=== PATIENT | female | born 1990 | race Hispanic/Latino ===

== ENCOUNTER 2018-03-28 06:47 | Inpatient (IN) | payer MEDICAID, OTHER ==
[2018-03-28 06:47] VITALS: BMI 24.9
--- NOTE | 2018-03-28 07:31 | C.PDOC ---
History Of Present Illness 27-year-old male presents to the ED complaining of alcohol abuse. Patient requests alcohol detox. Notes last alcohol intake was 5 hours ago. No medical complaints at this time. Time Seen by Provider: 03/28/18 07:16 Chief Complaint (Nursing): Substance Abuse History Per: Patient History/Exam Limitations: no limitations Recent travel outside of the [place]: No Past Medical History Reviewed: Historical Data, Nursing Documentation, Vital Signs Vital Signs: Last Vital Signs Temp 98.1 F 03/28/18 06:54 Pulse 79 03/28/18 06:54 Resp 20 03/28/18 06:54 BP 117/74 03/28/18 06:54 Pulse Ox 96 03/28/18 06:54 - Medical History PMH: Asthma Denies: Diabetes, Hepatitis, HIV, HTN, Seizures, Sexually Transmitted Disease - [facility] Procedures PERIPHERAL NERVE SUTURE (01/10/06) TENDON SHEATH SUTURE (01/10/06) Family History: States: Unknown Family Hx - Social History Hx Alcohol Use: Yes Hx Substance Use: Yes (heroin) - Immunization History Hx Tetanus Toxoid Vaccination: No Hx Influenza Vaccination: No Hx Pneumococcal Vaccination: No Review Of Systems Except As Marked, All Systems Reviewed And Found Negative. Constitutional: Positive for: Other Physical Exam - Physical Exam Appears: Well, Non-toxic, No Acute Distress Skin: Normal Color, Warm, Dry Head: Atraumatic, Normacephalic Eye(s): bilateral: Normal Inspection Oral Mucosa: Moist Neck: Normal ROM, Supple Chest: Symmetrical, No Deformity Cardiovascular: Rhythm Regular, No Murmur Respiratory: Normal Breath Sounds, No Rales, No Rhonchi, No Wheezing Gastrointestinal/Abdominal: Normal Exam, Soft, No Tenderness Neurological/Psych: Oriented x3 ED Course And Treatment - Laboratory Results Result Diagrams: 03/28/18 07:59 03/28/18 07:47 O2 Sat by Pulse Oximetry: 96 (RA) Pulse Ox Interpretation: Normal Medical Decision Making Medical Decision Making: Plan: -Blood sent. -HCG Urine -Urinalysis Progress/Update: Patient is medically cleared for detox. Disposition - Disposition Disposition: HOSPITALIZED Disposition Time: 08:30 Condition: STABLE - Clinical Impression Clinical Impression: Alcohol abuse - Scribe Statement The provider has reviewed the documentation as recorded by the Scribe (Yesi Andersen) Provider Attestation: All medical record entries made by the Scribe were at my direction and personally dictated by me. I have reviewed the chart and agree that the record accurately reflects my personal performance of the history, physical exam, medical decision making, and the department course for this patient. I have also personally directed, reviewed, and agree with the discharge instructions and disposition. Decision To Admit - Pt Status Changed To: Hospital Disposition Of: Inpatient - Admit Certification Admit to Inpatient:: After my assessment, the patient will require hospitalization for at least two midnights. This is because of the severity of symptoms shown, intensity of services needed, and/or the medical risk in this patient being treated as an outpatient. - InPatient: Physician Admission Certification: I certify that this patient requires 2 or more midnights of care for the following reason:: detox need more 2 days - . Bed Request Type: Detox Admitting Physician: Anila Tavarez Patient Diagnosis: Alcohol abuse
[2018-03-28 08:04] LABS: HCG,QUALITATIVE URINE NEGATIVE (NEGATIVE)
[2018-03-28 08:06] LABS: SQUAMOUS EPITHIAL 5 /hpf (0-5); URINE BACTERIA RARE (<OCC); URINE BILIRUBIN NEGATIVE (NEGATIVE); URINE CLARITY Hazy (Clear); URINE COLOR Straw (YELLOW); URINE GLUCOSE (UA) NORMAL (Normal); URINE LEUKOCYTE ESTERASE 1+ Leu/uL (Negative); URINE PROTEIN NEGATIVE (NEGATIVE); URINE UROBILINOGEN NORMAL mg/dL (0.2-1.0)
[2018-03-28 08:07] LABS: URINE BLOOD 1+ (NEGATIVE)
[2018-03-28 08:12] LABS: ALBUMIN 4.6 g/dL (3.5-5.0); ALT/SGPT 63 U/L (9-52); AST/SGOT 102 U/L (14-36); BLOOD UREA NITROGEN 6 mg/dL (7-17); CALCIUM 8.9 mg/dl (8.6-10.4); GFR NON-AFRICAN AMERICAN > 60
[2018-03-28 08:14] LABS: BARBITURATES, UR NEGATIVE (NEGATIVE); BENZODIAZEPINES, UR NEGATIVE (NEGATIVE); OPIATES, UR NEGATIVE (NEGATIVE); PHENCYCLIDINE, UR NEGATIVE (NEGATIVE)
[2018-03-28 08:18] LABS: BASO % 0.2 % (0.0-2.0); EOS # 0.1 K/uL (0.0-0.7); EOS % 1.3 % (0.0-4.0); LYMPH # 1.7 K/uL (1.0-4.3); LYMPH % 34.6 % (20.0-40.0); MEAN CORPUSCULAR HEMOGLOBIN 33.6 pg (27.0-31.0); MEAN CORPUSCULAR HGB CONC 34.5 g/dL (33.0-37.0); MONO # 0.2 K/uL (0.0-0.8); NEUT # 2.9 K/uL (1.8-7.0); NEUT % 59.9 % (50.0-75.0); RBC 3.52 Mil/uL (3.80-5.20); RED CELL DISTRIBUTION WIDTH 14.4 % (11.5-14.5); WHITE BLOOD COUNT 4.8 K/uL (4.8-10.8)
[2018-03-28 08:20] LABS: HEMOGLOBIN 11.8 g/dL (11.0-16.0); MEAN CELL VOLUME 97.4 fL (81.0-99.0)
--- NOTE | 2018-03-28 11:39 | PCM.BM ---
<Conchita Small - Last Filed: 03/28/18 11:38> Treatment Plan Problems - Problems identified on initial assessmt potential for alcohol withdrawals Date Initiated: 03/28/18 Assessment reference: NA Status: Active Treatment assets and liabiliti Patient Assests: cooperative, motivated, ADL independent, physically healthy, negotiates basic needs Patient Liabilities: financial problems, poor support system, substance abuse - Milieu Protocol Maintain good personal hygiene: daily Encourage regular showers, daily Remind p atient to perform daily oral care, daily Assist patient to perform ADL's Conduct patient checks and document Observation sheet: Q15 minutes Maintain personal safety: every shift Educate patient to report safety concerns to staff, every shift Monitor environment for contraband/sharps Medication safety: Monitor for expected outcome, potential side effects: every shift, Assess barriers to learning: every shift, Assess readiness for medication education: every shift <Aminata Wallace - Last Filed: 03/29/18 12:27> Family Contact Family involvement: Famliy/SO not involved - Goals for Treatment Patient goals for treatment: Complete detox for alcohol and resume tx. at her methadone clinic. Discharge/Continuing Care - Education Needs Education Needs: Patient Medication, Patient Diagnosis/Disease Process, Patient Coping Skills, Patient Anger Management skills, Patient Placement options, Patient Community resources - Discharge Discharge Criteria: Ability to care for self, No longer exhibiting s/s of withdrawal, Reduction of target symptoms Discharge to:: Home, With Family - Treatment Team Participation Patient/Family/SO Statement: 03/29/18 12:27 "I wanna go back to [facility]--I have take home bottles..." Discussed with Family/SO: No Was Patient/Family/SO present at Treatment Team Meeting: Yes
[2018-03-29] MEDS: Methadone 40 mg Tab PO SCH (09:25)
[2018-03-29] MEDS: Multiple Vitamins Tab PO SCH (09:25)
--- NOTE | 2018-03-29 11:26 | PCM.PSYCH ---
Initial Psychiatric Evaluation - Initial Psychiatric Evaluation Legal Status: Capacity Chief Complaint (in patient's own words): I NEED TO STOP DRINKING I HAVE BEEN DRINKING FOR THREE WEEKS AND I WANT TO STOP BEFORE IT GETS ANY WORSE Patient's Reaction to Hospitalization: I NEED HELP! History of Present Illness and Precipitating Events: PT IS A27 YEAR OLD SINGLE DOMICILED EMPLOYED FEMALE WHO CAME TO [facility] SEEKING DETOX FROM ALCOHOL. SHE HAS TWO CHILDREN WHO ARE CURRENTLY WITH THEIR FATHER/.. PT IS ON MMTP AND RECEIVES A 100MG OF METHADONE A DAY. PTB STARTED WITH PAIN KILLERS FOR HER BACK AND THEN STARTED USING HEROIN. SHE SHOT AND SNORTED HEROIN ABOUT A BUNDLE A DAY. SHE HAS BEEN OM MMTP FOR ABOUT SEVEN MONTHS AND GETS TAKE HOME BOTTLES. PT HAS NO LEGAL OR HISTORY. PT STARTED USING ALCOHOL ABOUT AGE 17. ALCOHOL BECAME A PROBLEM 6 YEARS AGO WHERE SHE DEVELOPED ALCOHOL POSIONING AND GRAND MAL SEIZURES AND WAS IN ICU WITH LFTS ABOVE 700. THREE WEEKS AGO AFTER 6 YEARS SOBER PT BEGAN DRINKING OVER 2 PINTS OF VODKA A DAY PT WANTED HELP BEFORE THINGS GOT WORSE. 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 PT'S FATHER WHEN SHE WAS 12 YEARS OLD. HER MOTHER IS STILL ALIVE. 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 PT HAS THREE OLDER BROTHERPT STATES GRANDFATHER AND BROTHER HAVE SUBSTANCE ABUSE PROBLEMS, PT BHAS BEEN AT [facility] FOR [facility]OX AND [facility]. PT WANTS TO ATTEND AA/NAQ MEETINGS. PT CURRENTLY HAS TREMORS AND ANXIETY WITHDRAWAL SYMPTOMS.OH Current Medications: Active Medications Generic Name Dose Route Start Last Admin Trade Name Freq PRN Reason Stop Dose Admin Clonidine HCl 0.1 mg 03/28/18 21:35 Catapres PO Q4H PRN Symptoms of alcohol withdrawl Folic Acid 1 mg 03/29/18 10:00 03/29/18 09:25 Folic Acid PO 1 mg DAILY STEVEN Administration Gabapentin 300 mg 03/28/18 14:00 03/29/18 09:25 Neurontin PO 300 mg TID STEVEN Administration Hydroxyzine HCl 25 mg 03/28/18 21:36 Atarax PO Q6 PRN Anxiety Lorazepam 1 mg 03/28/18 13:11 03/29/18 08:33 Ativan PO 1 mg Q4 PRN Administration alcohol withdrawal Lorazepam 1 mg 03/29/18 10:00 03/29/18 10:54 Ativan PO 04/03/18 09:59 1 mg Q4H STEVEN Administration Taper Methadone HCl 120 mg 03/29/18 10:00 03/29/18 09:25 Methadose PO 120 mg DAILY STEVEN Administration Multivitamins 1 tab 03/29/18 10:00 03/29/18 09:25 Hexavitamin PO 1 tab DAILY STEVEN Administration Nicotine 1 patch 03/28/18 14:00 03/29/18 09:25 Nicoderm Cq TD 1 patch DAILY STEVEN Administration Ondansetron HCl 4 mg 03/28/18 13:12 03/28/18 13:28 Zofran Tab PO 4 mg Q6 PRN Administration Nausea/Vomiting Thiamine HCl 100 mg 03/29/18 10:00 03/29/18 09:25 Vitamin B1 Tab PO 100 mg DAILY STEVEN Administration Trazodone HCl 50 mg 03/28/18 21:35 03/28/18 22:09 Desyrel PO 50 mg HS PRN Administration Insomnia Past Psychiatric History - Past Psychiatric History Previous Treatment History: None Pertinent Medical Hx (Current Medical&Sleep Prob, Allergies): Allergies Allergy/AdvReac Type Severity Reaction Status Date / Time No Known Allergies Allergy Verified 02/16/18 19:51 Methadone [Methadone HCl] 100 mg PO DAILY 03/28/18 Review of Systems - Review of Systems Systems not reviewed;Unavailable: Intoxicated - Constitutional Constitutional: Weakness, Malaise - EENT Eyes: UNREMARKABLE Ears: UNREMARKABLE Nose/Mouth/Throat: UNREMARKABLE - Breasts Breasts: UNREMARKABLE - Cardiovascular Cardiovascular: UNREMARKABLE - Respiratory Respiratory: UNREMARKABLE - Gastrointestinal Gastrointestinal: UNREMARKABLE - Genitourinary Genitourinary: UNREMARKABLE - Reproductive: Female Reproductive:Female: UNREMARKABLE - Menstruation Menstruation: UNREMARKABLE - Musculoskeletal Musculoskeletal: UNREMARKABLE - Integumentary Integumentary: UNREMARKABLE - Neurological Neurological: Tremor - Psychiatric Psychiatric: Anxiety - Endocrine Endocrine: UNREMARKABLE - Hematologic/Lymphatic Hematologic: UNREMARKABLE Mental Status Examination - Personal Presentation Personal Presentation: Looks stated age - Affect Affect: Blunted - Motor Activity Motor Activity: Calm - Reliability in Providing Information Reliability in Providing Information: Good - Speech Speech: Organized, Relevant - Mood Mood: Anxious - Formal Thought Process Formal Thought Process: No Impairment - Obsessions/Compulsions Obsessions: None Compulsions: None - Cognitive Functions Orientation: Person, Place, Situation, Time Attention/Concentration: Attentive Abstract Thinking: As evidence by abstract perception of proverbs Estimate of Intelligence: Average Judgement: Intact, as evidence by: Good judgement Memory: Recent intact, as evidence by: 3/3 object recall, Remote intact, as evidenced by: Abilit to recall sig. life events - Risk Risk: Seizure, Withdrawal - Strength & Assets Inventory Strength & Assets Inventory: Intelligence, Family support, Education, Employment status, Employment history, Skills DSM 5 DX - DSM 5 DSM 5 Diagnosis: ALCOHOL WITHDRAWAL ATIVAN TAPER ALCOHOL USE DISORDER SEVERE [place] [facility] GROUP MILIEU RECREATIONAL THERAPY SUPPORTIVE PSYCHOTHERAPY NEURONTIN OPIOID USE DISORDER SEVERE ON MEDICATION ASSISTED THERAPY METHADONE - Recommended/Plan of Treatment Treatment Recommendations and Plan of Treatment: SEE ABOVE Projected ELOS: 5 DAYS Prognosis: GOOD WITH TREATMENT Discharge Plan and Discharge Criteria: NO ACUTE ALCHOLIC WITHDRAWAL SYMPTOMS. - Smoking Cessation Smoking Cessation Initiated: No
--- NOTE | 2018-03-29 13:20 | PCM.PYCHPN ---
Psychiatric Progress Note - Psychiatric Progress Note Patient seen today, length of contact: 18 Patient Chief Complaint: I need to stop drinking, as I have been drinking of several weeks Problems Identified/Issues Discussed: The pt is seen, chart reviewed, case discussed with staff. The pt is compliant with medications and states she is feeling better. Pt does state she has facial cheek swelling similar in nature to when she used to drink. Pt denies SOB/ airway obstruction Symptoms are improving but needs more time to stabilize. Pt attends groups and activities. Support given, psycho-education provided. After care discussed. Medication Change: Yes Medical Record Reviewed: Yes Mental Status Examination - Cognitive Function Orientation: Person, Place, Situation, Time Memory: Intact Attention: WNL Concentration: WNL Association: WNL Fund of Knowledge: WNL - Mood Mood: Anxious - Affect Affect: Blunted - Speech Speech: Appropriate - Formal Thought Process Formal Thought Process: No Impairment - Suicidal Ideation Suicidal Ideation: No - Homicidal Ideation Homicidal Ideation: No Goal/Treatment Plan - Goal/Treatment Plan Need for Continued Stay: Discharge may exacerbated symptoms Progress Toward Problem(s) and Goals/Treatment Plan: Taper with Ativan Gabapentin for augmentation if needed Methadone 120 mg PO daily same as outpatient dose Trazodone 50 mg PO HS PRN As needed medications All risks, benefits and alternatives of the meds discussed, and the pt agreed and understood. Attend groups and activities Supportive therapy and psychoeducation FL for abstinence CBT for relapse prevention Encourage MAT Refer to rehab or IOP, and self-help groups Teach healthy lifestyle methods, i.e. diet, exercise, meditation Smoking cessation with FL Nicotine patch daily
[2018-03-29 14:30] VITALS: RESP 18
[2018-03-29] MEDS ORDERED: Vitamins A & D Oint UD Foilpak TOP PRN (20:15)
[2018-03-30] MEDS: Multiple Vitamins Tab PO SCH (09:00)
[2018-03-30] MEDS: Methadone 40 mg Tab PO SCH (09:01)
[2018-03-30 09:42] VITALS: BP 126/84; PULSE 79; TEMP 98.3; O2SAT 98
--- NOTE | 2018-03-30 09:59 | PCM.PYCHDC ---
Mental Status Examination - Mental Status Examination Orientation: Person Discharge Summary - Discharge Note Consultations:: List each consultation separately and include: 1. Reason for request. 2. Findings. 3. Follow-up Summary of Hospital Course include:: 1. Description of specific treatment plan utilized for patients during their course of treatmen. 2. Summarize the time- course for resolution of acute symptoms and/or regressed behaviors. 3. Describe issues identified and worked on during hospitalization. 4. Describe medication utilized. 5. Describe medical problems identified and treated. 6. Reassessment of suicide risk Summary of Hospital Course: She left AMA b/c she didn't want to lose her job and was "feeling better." - Final Diagnosis (DSM 5) Condition upon Discharge: STABLE Disposition: AGAINST MEDICAL ADVICE
[2018-03-30] MEDS ORDERED: Influenza Vaccine 60 MCG/0.5 ML SYR (3 yr & up) IM ONE (14:00)
== END 2018-03-30 10:00 | disposition left against medical advice (07) | DRG 743 ==
LOC: C.ER 06:47 → C.7D 09:51
PROVIDERS: ADMIT Psychiatry & Neurology Psychiatry; ATTEND Psychiatry & Neurology Psychiatry
PROC: HZ2ZZZZ Detoxification Services for Substance Abuse Treatment (ICD-10-PCS; principal; 2018-03-28)
PROC: HZ81ZZZ Medication Management for Substance Abuse Treatment, Methadone Maintenance (ICD-10-PCS; 2018-03-28)
PROC: HZ59ZZZ Individual Psychotherapy for Substance Abuse Treatment, Supportive (ICD-10-PCS; 2018-03-28)
PROC: HZ46ZZZ Group Counseling for Substance Abuse Treatment, Psychoeducation (ICD-10-PCS; 2018-03-28)
DX: F10.230 Alcohol dependence with withdrawal, uncomplicated (principal); F11.20 Opioid dependence, uncomplicated; Y90.7 Blood alcohol level of 200-239 mg/100 ml; F41.9 Anxiety disorder, unspecified; J45.909 Unspecified asthma, uncomplicated; Z86.69 Personal history of other diseases of the nervous system and sense organs

== ENCOUNTER 2018-04-13 10:08 | Inpatient (IN) | payer MEDICAID, OTHER ==
[2018-04-13 10:14] VITALS: BMI 25.0
[2018-04-13 10:50] LABS: HCG,QUALITATIVE URINE NEGATIVE (NEGATIVE); SQUAMOUS EPITHIAL 1 /hpf (0-5); URINE BACTERIA RARE (<OCC); URINE BILIRUBIN NEGATIVE (NEGATIVE); URINE BLOOD 1+ (NEGATIVE); URINE CLARITY Clear (Clear); URINE COLOR Yellow (YELLOW); URINE GLUCOSE (UA) NORMAL (Normal); URINE LEUKOCYTE ESTERASE TRACE Leu/uL (Negative); URINE PROTEIN NEGATIVE (NEGATIVE); URINE UROBILINOGEN NORMAL mg/dL (0.2-1.0)
[2018-04-13 10:55] LABS: BASO % 0.8 % (0.0-2.0); EOS % 0.9 % (0.0-4.0); HEMOGLOBIN 13.4 g/dL (11.0-16.0); LYMPH # 1.4 K/uL (1.0-4.3); MEAN CELL VOLUME 97.4 fL (81.0-99.0); MEAN CORPUSCULAR HEMOGLOBIN 32.5 pg (27.0-31.0); MEAN CORPUSCULAR HGB CONC 33.3 g/dL (33.0-37.0); MEAN PLATELET VOLUME 8.4 fL (7.2-11.7); MONO # 0.2 K/uL (0.0-0.8); MONO % 5.4 % (0.0-10.0); NEUT # 2.8 K/uL (1.8-7.0); NEUT % 61.9 % (50.0-75.0); NRBC % 0.1 % (0.0-2.0); RBC 4.11 Mil/uL (3.80-5.20); RED CELL DISTRIBUTION WIDTH 15.3 % (11.5-14.5); WHITE BLOOD COUNT 4.5 K/uL (4.8-10.8)
[2018-04-13 11:09] LABS: ALB/GLOB RATIO 1.3 (1.0-2.1); ALBUMIN 5.1 g/dL (3.5-5.0); ALT/SGPT 395 U/L (9-52); AST/SGOT 602 U/L (14-36); BLOOD UREA NITROGEN 6 mg/dL (7-17); CALCIUM 9.1 mg/dl (8.6-10.4); GFR NON-AFRICAN AMERICAN > 60
[2018-04-13 11:11] LABS: BARBITURATES, UR NEGATIVE (NEGATIVE); BENZODIAZEPINES, UR NEGATIVE (NEGATIVE); OPIATES, UR NEGATIVE (NEGATIVE); PHENCYCLIDINE, UR NEGATIVE (NEGATIVE)
--- NOTE | 2018-04-13 11:26 | C.PDOC ---
History Of Present Illness 27 year old female presents to the emergency department with reports of feeling suicidal and depressed over the last few days. Patient states that she is not suicidal at this time, and has no suicidal plan. Patient states that she is a chronic drinker, drinking half a gallon of vodka per day. She reports that she is withdrawing from alcohol at this time, and her last drink was several hours ago. She denies any other complaints at this time. Time Seen by Provider: 04/13/18 10:26 Chief Complaint (Nursing): Psychiatric Evaluation History Per: Patient History/Exam Limitations: no limitations Onset/Duration Of Symptoms: Days Current Symptoms Are (Timing): Still Present Suicide/Self Injury Attempted (Context): None Modifying Factor(s): Alcohol Associated Symptoms: Depression, Suicidal Thoughts. denies: Suicidal Plan Past Medical History Reviewed: Historical Data, Nursing Documentation, Vital Signs Vital Signs: Last Vital Signs Temp 98.2 F 04/13/18 10:30 Pulse 74 04/13/18 10:30 Resp 18 04/13/18 10:30 BP 151/89 H 04/13/18 10:30 Pulse Ox 95 04/13/18 10:30 - Medical History PMH: Anxiety, Asthma, Depression Denies: Diabetes, Hepatitis, HIV, HTN (denies), Seizures, Sexually Transmitted Disease Surgical History: No Surg Hx - [facility] Procedures DETOXIFICATION SERVICES FOR SUBSTANCE ABUSE TREATMENT (03/28/18) GROUP SHIRT MARKER FOR SUBSTANCE ABUSE TREATMENT, PSYCHOEDUCATION (03/28/18) INDIV PSYCHOTHERAPY FOR SUBSTANCE ABUSE TREATMENT, SUPPORT (03/28/18) MEDS MGMT FOR SUBSTANCE ABUSE TREATMENT, METHADONE MAINT (03/28/18) PERIPHERAL NERVE SUTURE (01/10/06) TENDON SHEATH SUTURE (01/10/06) Family History: States: No Known Family Hx - Social History Hx Alcohol Use: Yes Hx Substance Use: Yes - Immunization History Hx Tetanus Toxoid Vaccination: No Hx Influenza Vaccination: No Hx Pneumococcal Vaccination: No Review Of Systems Except As Marked, All Systems Reviewed And Found Negative. Constitutional: Negative for: Fever, Chills Gastrointestinal: Negative for: Nausea, Vomiting, Abdominal Pain, Diarrhea Psych: Positive for: Depression, Suicidal ideation Physical Exam - Physical Exam Appears: Non-toxic, No Acute Distress, Other (flat affect) Skin: Normal Color, Warm, Dry, No Rash Head: Atraumatic, Normacephalic Eye(s): bilateral: Normal Inspection, PERRL, EOMI Nose: Normal Oral Mucosa: Moist Throat: No Erythema, No Exudate Neck: Normal, Supple Chest: Symmetrical, No Tenderness Cardiovascular: Rhythm Regular, No Friction Rub, No Murmur Respiratory: Normal Breath Sounds, No Rales, No Rhonchi, No Wheezing Gastrointestinal/Abdominal: Soft, No Tenderness, No Guarding, No Rebound Back: Normal Inspection, No CVA Tenderness Extremity: Normal ROM, No Swelling Neurological/Psych: Oriented x3, Normal Speech, Normal Motor Gait: Steady ED Course And Treatment - Laboratory Results Result Diagrams: 04/13/18 10:50 04/13/18 10:50 O2 Sat by Pulse Oximetry: 95 (RA) Pulse Ox Interpretation: Normal Progress Note: Plan: Chemistry. Hematology. HCG Qualitative Urine. Urinalysis Medical Decision Making Medical Decision Making: The patient is medically cleared for psych/detox admission. Disposition - Disposition Disposition: HOSPITALIZED Disposition Time: 14:00 Condition: STABLE Forms: [facility] (Tajik) - POA Present On Arrival: None - Clinical Impression Clinical Impression: Major depressive disorder, recurrent episode, Alcohol dependence, Anxiety disorder, unspecified - PA / IMMUNOCHEMIST / Resident Statement MD/DO has reviewed & agrees with the documentation as recorded. - Scribe Statement The provider has reviewed the documentation as recorded by the Scribe (Woodrow Siddiqui) All medical record entries made by the Scribe were at my direction and personally dictated by me. I have reviewed the chart and agree that the record accurately reflects my personal performance of the history, physical exam, medical decision making, and the department course for this patient. I have also personally directed, reviewed, and agree with the discharge instructions and disposition.
[2018-04-13] MEDS: Multiple Vitamins Tab PO SCH (16:34)
--- NOTE | 2018-04-13 18:02 | PCM.BM ---
<Bradley Partida - Last Filed: 04/13/18 17:57> Treatment Plan Problems - Problems identified on initial assessmt Depression Date Initiated: 04/13/18 Time Initiated: 17:57 Assessment reference: NA Status: Active Alcohol abuse Date Initiated: 04/13/18 Time Initiated: 17:58 Assessment reference: NA Status: Active Treatment assets and liabiliti Patient Assests: cooperative, motivated, self-reliant, ADL independent, physically healthy, negotiates basic needs Patient Liabilities: live alone (Homeless), financial problems (Unemployed), substance abuse, medical problems (Hypertension) - Milieu Protocol Maintain good personal hygiene: daily Encourage regular showers, every shift Remind patient to perform daily oral care, every shift Assist patient to perform ADL's Conduct patient checks and document Observation sheet: Q15 minutes Maintain personal safety: every shift Educate patient to report safety concerns to staff, every shift Monitor environment for contraband/sharps Medication safety: Monitor for expected outcome, potential side effects: every shift, Assess barriers to learning: every shift, Assess readiness for medication education: every shift <Griselda Rizo - Last Filed: 04/14/18 14:08> Family Contact Family involvement: Famliy/SO not involved - Goals for Treatment Patient goals for treatment: "I need to go to rehab." Discharge/Continuing Care - Education Needs Education Needs: Patient Medication, Patient Coping Skills, Patient Placement options, Patient Community resources - Discharge Discharge Criteria: Tolerates medication w/o severe side effects, No longer exhibiting s/s of withdrawal, Reduction of target symptoms Discharge to:: Substance Abuse Rehab - Treatment Team Participation Discussed with Family/SO: No Was Patient/Family/SO present at Treatment Team Meeting: Yes <Yara Haynes - Last Filed: 04/16/18 10:51> - Diagnosis (1) Major depressive disorder, recurrent episode Status: Acute Interventions: 04/16/18 10:51 * Assess/adjust medications daily and /or as needed * See patient on an individual basis 7x/week to assess symptoms of depression * Monitor for side effects & effectiveness of medications * (2) Alcohol dependence Status: Acute Interventions: 04/16/18 10:51 * Assess 7x/week regarding severity of withdrawal * Educate regarding risks, benefits, side effects and alternatives of medications * Use Motivational Interviewing for abstinence * Use CBT for relapse prevention * Medication management for withdrawal symptoms * Encourage medication assisted treatment *
--- NOTE | 2018-04-13 19:44 | CP.PCM.CON ---
<Monserrat Guerrero - Last Filed: 04/13/18 20:58> History of Present Illness - History of Present Illness History of Present Illness: Medicine consult for patient who is a 27 year old female with pmhx of alcohol abuse and former IV drug abuse admitted for alcohol detox and associated depression; requested consult for transaminitis. Patient was recently admitted here in mid March for alcohol detox, but left AMA. Since then, patient reports she lost her job and custody of her children, and has been drinking excessively and taking Tylenol for body aches. Patient reports she consumes >1L vodka daily, and takes at least 5 extra strength tylenol daily. Patient reports scleral icterus for the past few days, denies pruritis. Patient reports some epigastric and RUQ pain, in addition to left lower back pain. Patient reports a history of IV heroin abuse, and currently on methadone for the past 8 months. Denies nausea, increased girth to abdomen, loose or foul smelling stools, post prandial abdominal pain. Pmhx: alcohol abuse, IV drug abuse Pshx: R wrist sx Allergies: denies Meds: sundar SocHx: Vodka >1L/day, 1 ppd x 5 yrs, no other drug use FamHx: HTN, ovarian ca Review of Systems - Constitutional Constitutional: Headache - EENT Eyes: Other (yellowing of eyes) - Cardiovascular Cardiovascular: absent: Chest Pain, Palpitations - Respiratory Respiratory: absent: Dyspnea - Gastrointestinal Gastrointestinal: Abdominal Pain, Heartburn. absent: Loose Stools, Nausea - Musculoskeletal Musculoskeletal: Myalgias Past Patient History - Infectious Disease Hx of Infectious Diseases: None - Past Social History Smoking Status: Heavy Smoker > 10 Cigarettes Daily - CARDIAC Hx Hypertension: No (denies) - PULMONARY Hx Asthma: Yes - NEUROLOGICAL Hx Seizures: No - HEMATOLOGICAL/ONCOLOGICAL Hx Human Immunodeficiency Virus (HIV): No - MUSCULOSKELETAL/RHEUMATOLOGICAL Hx Falls: No - GENITOURINARY/GYNECOLOGICAL Hx Sexually Transmitted Disorders: No - PSYCHIATRIC Hx Substance Use: Yes - SURGICAL HISTORY Hx Surgeries: Yes Hx Musculoskeletal Surgery: Yes (right wrist) - ANESTHESIA Hx Anesthesia: No Meds Allergies/Adverse Reactions: Allergies Allergy/AdvReac Type Severity Reaction Status Date / Time No Known Allergies Allergy Verified 04/13/18 10:13 - Medications Medications: Current Medications Clonidine HCl (Catapres) 0.1 mg PO Q4H PRN PRN Reason: Symptoms of alcohol withdrawl Folic Acid (Folic Acid) 1 mg PO DAILY [facility] Last Admin: 04/13/18 16:34 Dose: 1 mg Gabapentin (Neurontin) 400 mg PO TID [facility] Last Admin: 04/13/18 17:38 Dose: 400 mg Lorazepam (Ativan) 2 mg PO Q4 [facility]; Taper Stop: 04/18/18 15:44 Last Admin: 04/13/18 16:34 Dose: 2 mg Lorazepam (Ativan) 1 mg PO Q4H PRN PRN Reason: Symptoms of alcohol withdrawl Multivitamins (Hexavitamin) 1 tab PO DAILY [facility] Last Admin: 04/13/18 16:34 Dose: 1 tab Pneumococcal Polyvalent Vaccine (Pneumovax 23 Vaccine) 0.5 ml IM .ONCE ONE Stop: 04/15/18 10:01 Thiamine HCl (Vitamin B1 Tab) 100 mg PO DAILY [facility] Last Admin: 04/13/18 16:34 Dose: 100 mg Trazodone HCl (Desyrel) 50 mg PO HS PRN PRN Reason: Insomnia Physical Exam - Constitutional Appears: Non-toxic, No Acute Distress - Head Exam Head Exam: ATRAUMATIC, NORMAL INSPECTION, NORMOCEPHALIC - Eye Exam Eye Exam: EOMI, Normal appearance. absent: Nystagmus, Scleral icterus Pupil Exam: PERRL - ENT Exam ENT Exam: Mucous Membranes Moist, Normal Exam - Neck Exam Neck exam: Positive for: Normal Inspection - Respiratory Exam Respiratory Exam: Clear to Auscultation Bilateral, NORMAL BREATHING PATTERN - Cardiovascular Exam Cardiovascular Exam: REGULAR RHYTHM, +S1, +S2 - GI/Abdominal Exam GI & Abdominal Exam: Organomegaly (liver palpable 3cm below costal margin), Soft , Tenderness (epigastric, RUQ). absent: Distended - Extremities Exam Extremities exam: Positive for: normal inspection. Negative for: calf tenderness, pedal edema - Neurological Exam Neurological exam: Alert, Oriented x3 - Psychiatric Exam Psychiatric exam: Anxious, Normal Affect, Normal Mood - Skin Skin Exam: Dry, Intact, Normal Color (no jaundice), Warm Results - Vital Signs Recent Vital Signs: Last Vital Signs Temp 98.6 F 04/13/18 15:45 Pulse 80 04/13/18 15:45 Resp 18 04/13/18 15:45 BP 154/90 H 04/13/18 15:45 Pulse Ox 95 04/13/18 14:40 - Labs Result Diagrams: 04/13/18 10:50 04/13/18 10:50 Labs: Laboratory Results - last 24 hr 04/13/18 04/13/18 04/13/18 10:44 10:44 10:50 WBC 4.5 L RBC 4.11 Hgb 13.4 Hct 40.1 MCV 97.4 MCH 32.5 H MCHC 33.3 RDW 15.3 H Plt Count 113 L D MPV 8.4 Neut % (Auto) 61.9 Lymph % (Auto) 31.0 [place] % (Auto) 5.4 Eos % (Auto) 0.9 Baso % (Auto) 0.8 Neut # (Auto) 2.8 Lymph # (Auto) 1.4 [place] # (Auto) 0.2 Eos # (Auto) 0.0 Baso # (Auto) 0.0 Differential Comment Sodium Potassium Chloride Carbon Dioxide Anion Gap BUN Creatinine Est GFR ( Amer) Est GFR (Non-Af Amer) Random Glucose Calcium Magnesium Total Bilirubin AST ALT Alkaline Phosphatase Total Protein Albumin Globulin Albumin/Globulin Ratio Urine Color Yellow Urine Clarity Clear Urine pH 7.0 Ur Specific [place] 1.004 Urine Protein Negative Urine Glucose (UA) Normal Urine Ketones Negative Urine Blood 1+ H Urine Nitrate Negative Urine Bilirubin Negative Urine Urobilinogen Normal Ur Leukocyte Esterase Trace Urine WBC (Auto) 1 Urine RBC (Auto) 1 Ur Squamous Epith Cells 1 Urine Bacteria Rare Urine HCG, Qual Negative Urine Opiates Screen Negative Urine Methadone Screen Positive H Ur Barbiturates Screen Negative Ur Phencyclidine Scrn Negative Ur Amphetamines Screen Negative U Benzodiazepines Scrn Negative U Oth Cocaine Metabols Positive H U Cannabinoids Screen Negative Alcohol, Quantitative 04/13/18 10:50 WBC RBC Hgb Hct MCV MCH MCHC RDW Plt Count MPV Neut % (Auto) Lymph % (Auto) [place] % (Auto) Eos % (Auto) Baso % (Auto) Neut # (Auto) Lymph # (Auto) [place] # (Auto) Eos # (Auto) Baso # (Auto) Differential Comment Sodium 139 Potassium 3.6 Chloride 95 L Carbon Dioxide 31 H Anion Gap 17 BUN 6 L Creatinine 0.6 L Est GFR ( Amer) > 60 Est GFR (Non-Af Amer) > 60 Random Glucose 102 Calcium 9.1 Magnesium 1.8 Total Bilirubin 0.6 AST 602 H D ALT 395 H D Alkaline Phosphatase 171 H D Total Protein 9.0 H Albumin 5.1 H Globulin 3.9 Albumin/Globulin Ratio 1.3 Urine Color Urine Clarity Urine pH Ur Specific [place] Urine Protein Urine Glucose (UA) Urine Ketones Urine Blood Urine Nitrate Urine Bilirubin Urine Urobilinogen Ur Leukocyte Esterase Urine WBC (Auto) Urine RBC (Auto) Ur Squamous Epith Cells Urine Bacteria Urine HCG, Qual Urine Opiates Screen Urine Methadone Screen Ur Barbiturates Screen Ur Phencyclidine Scrn Ur Amphetamines Screen U Benzodiazepines Scrn U Oth Cocaine Metabols U Cannabinoids Screen Alcohol, Quantitative 183 H Assessment & Plan - Assessment and Plan (Free Text) Assessment: Patient is a 27 year old female admitted for alcohol detox and depression; medicine consult for evaluation and treatment of transaminitis. Plan: Transaminitis, acute; likely 2/2 to excessive alcohol and Tylenol consumption, continue to trend and r/o infectious etiology -acute elevation from prior admission 03/28/18 -discontinue all hepatotoxic medications -f/u hepatitis panel -f/u abdominal US -f/u INR, am labs -educated patient regarding Tylenol and its hepatotoxic effects -alcohol withdrawal/depression per primary Discussed with Dr. Lombardi -Monserrat Guerrero, PGY-1 <Osvaldo Lombardi - Last Filed: 04/14/18 06:44> Meds - Medications Medications: Current Medications Clonidine HCl (Catapres) 0.1 mg PO Q4H PRN PRN Reason: Symptoms of alcohol withdrawl Folic Acid (Folic Acid) 1 mg PO DAILY [facility] Last Admin: 04/13/18 16:34 Dose: 1 mg Gabapentin (Neurontin) 400 mg PO TID [facility] Last Admin: 04/13/18 17:38 Dose: 400 mg Influenza Virus Vaccine (Fluzone Quad [id number]) 60 mcg IM .ONCE ONE Stop: 04/15/18 10:01 Lorazepam (Ativan) 2 mg PO Q4 [facility]; Taper Stop: 04/18/18 15:44 Last Admin: 04/14/18 04:35 Dose: 2 mg Lorazepam (Ativan) 1 mg PO Q4H PRN PRN Reason: Symptoms of alcohol withdrawl Multivitamins (Hexavitamin) 1 tab PO DAILY [facility] Last Admin: 01/01/19 16:34 Dose: 1 tab Pneumococcal Polyvalent Vaccine (Pneumovax 23 Vaccine) 0.5 ml IM .ONCE ONE Stop: 04/15/18 10:01 Thiamine HCl (Vitamin B1 Tab) 100 mg PO DAILY [facility] Last Admin: 04/13/18 16:34 Dose: 100 mg Trazodone HCl (Desyrel) 50 mg PO HS PRN PRN Reason: Insomnia Results - Vital Signs Recent Vital Signs: Last Vital Signs Temp 98.5 F 04/14/18 05:53 Pulse 73 04/14/18 05:53 Resp 18 04/14/18 05:53 BP 130/79 04/14/18 05:53 Pulse Ox 95 04/13/18 14:40 - Labs Result Diagrams: 04/13/18 10:50 04/13/18 10:50 Labs: Laboratory Results - last 24 hr 04/13/18 04/13/18 04/13/18 10:44 10:44 10:50 WBC 4.5 L RBC 4.11 Hgb 13.4 Hct 40.1 MCV 97.4 MCH 32.5 H MCHC 33.3 RDW 15.3 H Plt Count 113 L D MPV 8.4 Neut % (Auto) 61.9 Lymph % (Auto) 31.0 [place] % (Auto) 5.4 Eos % (Auto) 0.9 Baso % (Auto) 0.8 Neut # (Auto) 2.8 Lymph # (Auto) 1.4 [place] # (Auto) 0.2 Eos # (Auto) 0.0 Baso # (Auto) 0.0 Differential Comment Sodium Potassium Chloride Carbon Dioxide Anion Gap BUN Creatinine Est GFR ( Amer) Est GFR (Non-Af Amer) Random Glucose Calcium Magnesium Total Bilirubin AST ALT Alkaline Phosphatase Total Protein Albumin Globulin Albumin/Globulin Ratio Urine Color Yellow Urine Clarity Clear Urine pH 7.0 Ur Specific [place] 1.004 Urine Protein Negative Urine Glucose (UA) Normal Urine Ketones Negative Urine Blood 1+ H Urine Nitrate Negative Urine Bilirubin Negative Urine Urobilinogen Normal Ur Leukocyte Esterase Trace Urine WBC (Auto) 1 Urine RBC (Auto) 1 Ur Squamous Epith Cells 1 Urine Bacteria Rare Urine HCG, Qual Negative Urine Opiates Screen Negative Urine Methadone Screen Positive H Ur Barbiturates Screen Negative Ur Phencyclidine Scrn Negative Ur Amphetamines Screen Negative U Benzodiazepines Scrn Negative U Oth Cocaine Metabols Positive H U Cannabinoids Screen Negative Alcohol, Quantitative 04/13/18 10:50 WBC RBC Hgb Hct MCV MCH MCHC RDW Plt Count MPV Neut % (Auto) Lymph % (Auto) [place] % (Auto) Eos % (Auto) Baso % (Auto) Neut # (Auto) Lymph # (Auto) [place] # (Auto) Eos # (Auto) Baso # (Auto) Differential Comment Sodium 139 Potassium 3.6 Chloride 95 L Carbon Dioxide 31 H Anion Gap 17 BUN 6 L Creatinine 0.6 L Est GFR ( Amer) > 60 Est GFR (Non-Af Amer) > 60 Random Glucose 102 Calcium 9.1 Magnesium 1.8 Total Bilirubin 0.6 AST 602 H D ALT 395 H D Alkaline Phosphatase 171 H D Total Protein 9.0 H Albumin 5.1 H Globulin 3.9 Albumin/Globulin Ratio 1.3 Urine Color Urine Clarity Urine pH Ur Specific [place] Urine Protein Urine Glucose (UA) Urine Ketones Urine Blood Urine Nitrate Urine Bilirubin Urine Urobilinogen Ur Leukocyte Esterase Urine WBC (Auto) Urine RBC (Auto) Ur Squamous Epith Cells Urine Bacteria Urine HCG, Qual Urine Opiates Screen Urine Methadone Screen Ur Barbiturates Screen Ur Phencyclidine Scrn Ur Amphetamines Screen U Benzodiazepines Scrn U Oth Cocaine Metabols U Cannabinoids Screen Alcohol, Quantitative 183 H Assessment & Plan - Date & Time Date: 04/14/18 (I have seen and examined the patient. I agree with the findings and plan of care as documented by Dr. Guerrero. Hospitalist service consulted due to elevated LFTs. History of alcohol abuse. Patient admitted to taking Tylenol as outpatient. Recommend discontinuation of alcohol consumption and Tylenol use as well as any hepatotoxic medications. Ativan for CIWA protocol recommended. Avoid Librium. Check hepatitis panel. Monitor for acute changes.) Time: 06:42 Attending/Attestation - Attestation I have personally seen and examined this patient.: Yes I have fully participated in the care of the patient.: Yes I have reviewed all pertinent clinical information: Yes
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
[2018-04-14 09:08] LABS: BASO % 0.3 % (0.0-2.0); EOS # 0.1 K/uL (0.0-0.7); LYMPH # 0.9 K/uL (1.0-4.3); LYMPH % 30.8 % (20.0-40.0); MONO # 0.1 K/uL (0.0-0.8); NEUT # 1.8 K/uL (1.8-7.0); WHITE BLOOD COUNT 2.9 K/uL (4.8-10.8)
[2018-04-14 09:11] LABS: INR 1.1; PROTHROMBIN TIME 11.5 SECONDS (9.7-12.2)
[2018-04-14 09:14] LABS: EOS % 2.6 % (0.0-4.0); MEAN CELL VOLUME 97.7 fL (81.0-99.0); MEAN CORPUSCULAR HGB CONC 33.8 g/dL (33.0-37.0); MEAN PLATELET VOLUME 9.7 fL (7.2-11.7); MONO % 4.8 % (0.0-10.0); NEUT % 61.5 % (50.0-75.0); RBC 3.96 Mil/uL (3.80-5.20); RED CELL DISTRIBUTION WIDTH 14.8 % (11.5-14.5)
--- NOTE | 2018-04-14 09:20 | US ---
Date of service: 04/14/2018 HISTORY: Elevated LFT COMPARISON: None. TECHNIQUE: Sonographic evaluation of the right upper quadrant of the abdomen. FINDINGS: LIVER: Measures 21.4 cm in length. Mildly increased echogenicity of the liver parenchyma. Normal directional blood flow is appreciated the portal vein. No mass. No intrahepatic bile duct dilatation. GALLBLADDER: Extensive cholelithiasis identified occupying a large volume of the gallbladder with tremendous posterior acoustic shadowing. However, there is no pericholecystic fluid collection or mural thickening appreciable as imaged. Further, there is no sonographic Crzu sign reported. COMMON BILE DUCT: Measures 1.7 mm. No stones. No dilatation. PANCREAS: Unremarkable as visualized. No mass. No ductal dilatation. RIGHT KIDNEY: Measures 11.4 cm in length. Normal echogenicity. No calculus, mass, or hydronephrosis. AORTA: No aneurysmal dilatation. IVC: Unremarkable. OTHER FINDINGS: None . IMPRESSION: Mild diffuse fatty infiltration liver is appreciated without focal mass or biliary tree dilatation. Extensive cholelithiasis identified distending the gallbladder without sonographic sign of cholecystitis. Normal biliary tree caliber grossly evident. Unremarkable pancreas and right kidney.
[2018-04-14 09:21] LABS: ALB/GLOB RATIO 1.3 (1.0-2.1); ALBUMIN 4.6 g/dL (3.5-5.0); ALT/SGPT 329 U/L (9-52); AST/SGOT 534 U/L (14-36); BLOOD UREA NITROGEN 9 mg/dL (7-17); CALCIUM 9.4 mg/dl (8.6-10.4); GFR NON-AFRICAN AMERICAN > 60
[2018-04-14] MEDS: Multiple Vitamins Tab PO SCH (09:28)
[2018-04-14 09:47] LABS: HEPATITIS B SURFACE AG Negative (NEGATIVE)
[2018-04-14 09:52] LABS: HEPATITIS A IGM NEGATIVE (NEGATIVE); HEPATITIS B CORE AB NEGATIVE (NEGATIVE)
[2018-04-14 10:06] LABS: HEPATITIS C ANTIBODY NEGATIVE (NEGATIVE)
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
[2018-04-15 06:57] LABS: BASO % 0.6 % (0.0-2.0); EOS # 0.1 K/uL (0.0-0.7); LYMPH # 1.1 K/uL (1.0-4.3); LYMPH % 33.2 % (20.0-40.0); MEAN CELL VOLUME 98.3 fL (81.0-99.0); MEAN CORPUSCULAR HGB CONC 33.5 g/dL (33.0-37.0); MEAN PLATELET VOLUME 9.6 fL (7.2-11.7); MONO # 0.1 K/uL (0.0-0.8); NEUT # 1.9 K/uL (1.8-7.0); NEUT % 59.2 % (50.0-75.0); NRBC % 0.1 % (0.0-2.0); RBC 3.96 Mil/uL (3.80-5.20); RED CELL DISTRIBUTION WIDTH 15.3 % (11.5-14.5); WHITE BLOOD COUNT 3.2 K/uL (4.8-10.8)
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
[2018-04-15 07:36] LABS: ALB/GLOB RATIO 1.3 (1.0-2.1); ALBUMIN 4.4 g/dL (3.5-5.0); BLOOD UREA NITROGEN 10 mg/dL (7-17); CALCIUM 9.7 mg/dl (8.6-10.4); GFR NON-AFRICAN AMERICAN > 60
[2018-04-15 07:37] LABS: ALT/SGPT 333 U/L (9-52); AST/SGOT 544 U/L (14-36)
[2018-04-15] MEDS: Multiple Vitamins Tab PO SCH (09:39)
[2018-04-15] MEDS ORDERED: Influenza Vaccine 60 MCG/0.5 ML SYR (3 yr & up) IM ONE (10:00)
[2018-04-15] MEDS ORDERED: Pneumococcal 23-Valent Vaccine IM ONE (10:00)
[2018-04-15] MEDS: Methadone 40 mg Tab PO SCH (13:07)
[2018-04-15] MEDS ORDERED: cefTRIAXone (Rocephin) 250 mg Inj IM ONE (15:28)
[2018-04-15] MEDS ORDERED: cefTRIAXone 250 MG in Lidocaine Hydrochloride 1% 0.9 ML IM ONE (16:15)
--- NOTE | 2018-04-15 23:15 | PCM.PYCHPN ---
Psychiatric Progress Note - Psychiatric Progress Note Patient seen today, length of contact: 15 min Patient Chief Complaint: I was feeling depressed.' Problems Identified/Issues Discussed: Patient was seen and evaluated, chart reviewed and discussed with staff. Patient still reports depressed mood and at times feelings of hopelessness and helplessness. She still reports withdrawal symptoms from drinking including shakes, nausea, anxiety, sweating. She remained isolated and withdrawn and confined to home. She is taking medication but denies any side effects. Symptoms are improving gradually and she needs to stay longer for further stabilization. Supportive therapy was given Medication Change: Yes Medical Record Reviewed: Yes Mental Status Examination - Cognitive Function Orientation: Person, Place, Situation, Time Memory: Intact Attention: WNL Concentration: Poor Association: WNL Fund of Knowledge: Poor - Mood Mood: Depressed, Anxious - Affect Affect: Constricted, Depressed - Speech Speech: Soft - Formal Thought Process Formal Thought Process: No Impairment - Suicidal Ideation Suicidal Ideation: No - Homicidal Ideation Homicidal Ideation: No Goal/Treatment Plan - Goal/Treatment Plan Need for Continued Stay: Severe depression anxiety, Severe functional impairment Progress Toward Problem(s) and Goals/Treatment Plan: Major depressive disorder recurrent severe without psychotic features Alcohol use disorder severe Alcohol withdrawal Cocaine use disorder moderate Opioid use disorder severe on maintenance therapy CBT Psychoeducation Supportive therapy and group therapy Ativan taper Methadone 120 mg p.o. daily Hydroxyzine 25 mg p.o. every 6 hours as needed Trazodone 50 mg p.o. nightly Zoloft 50 mg p.o. daily Gabapentin 400 mg p.o. 3 times daily - Smoking Cessation Smoking Cessation Initiated: No
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
[2018-04-16 08:06] LABS: EOS # 0.2 K/uL (0.0-0.7); EOS % 4.5 % (0.0-4.0); HEMOGLOBIN 12.8 g/dL (11.0-16.0); LYMPH # 1.3 K/uL (1.0-4.3); LYMPH % 37.2 % (20.0-40.0); MEAN CELL VOLUME 98.7 fL (81.0-99.0); MEAN CORPUSCULAR HEMOGLOBIN 33.4 pg (27.0-31.0); MEAN CORPUSCULAR HGB CONC 33.8 g/dL (33.0-37.0); MEAN PLATELET VOLUME 9.6 fL (7.2-11.7); MONO # 0.1 K/uL (0.0-0.8); NEUT # 1.9 K/uL (1.8-7.0); NEUT % 53.3 % (50.0-75.0); RBC 3.84 Mil/uL (3.80-5.20); RED CELL DISTRIBUTION WIDTH 15.3 % (11.5-14.5); WHITE BLOOD COUNT 3.5 K/uL (4.8-10.8)
[2018-04-16 08:23] LABS: ALB/GLOB RATIO 1.4 (1.0-2.1); ALBUMIN 4.4 g/dL (3.5-5.0); ALT/SGPT 368 U/L (9-52); AST/SGOT 613 U/L (14-36); BLOOD UREA NITROGEN 12 mg/dL (7-17); CALCIUM 9.5 mg/dl (8.6-10.4); GFR NON-AFRICAN AMERICAN > 60
[2018-04-16] MEDS: Methadone 40 mg Tab PO SCH (10:26)
[2018-04-16] MEDS: Multiple Vitamins Tab PO SCH (10:26)
--- NOTE | 2018-04-16 10:52 | PCM.PYCHPN ---
Psychiatric Progress Note - Psychiatric Progress Note Patient seen today, length of contact: 15 min Patient Chief Complaint: I was feeling depressed and suicidal.' Problems Identified/Issues Discussed: Patient was seen and evaluated, chart reviewed and discussed with staff. Patient still reports depressed mood and at times feelings of hopelessness and helplessness. She still reports withdrawal symptoms from drinking including shakes, nausea, anxiety, sweating. She remained isolated and withdrawn and confined to home. She is taking medication but denies any side effects. Symptoms are improving gradually and she needs to stay longer for further stabilization. Supportive therapy was given Medication Change: Yes Medical Record Reviewed: Yes Mental Status Examination - Cognitive Function Orientation: Person, Place, Situation, Time Memory: Intact Attention: WNL Concentration: Poor Association: WNL Fund of Knowledge: Poor - Mood Mood: Depressed, Anxious - Affect Affect: Constricted, Depressed - Speech Speech: Soft - Formal Thought Process Formal Thought Process: No Impairment - Suicidal Ideation Suicidal Ideation: No - Homicidal Ideation Homicidal Ideation: No Goal/Treatment Plan - Goal/Treatment Plan Need for Continued Stay: Severe depression anxiety, Severe functional impairment Progress Toward Problem(s) and Goals/Treatment Plan: Major depressive disorder recurrent severe without psychotic features Alcohol use disorder severe Alcohol withdrawal Cocaine use disorder moderate Opioid use disorder severe on maintenance therapy CBT Psychoeducation Supportive therapy and group therapy Ativan taper Methadone 120 mg p.o. daily Hydroxyzine 25 mg p.o. every 6 hours as needed Trazodone 50 mg p.o. nightly Zoloft 100 mg p.o. daily Gabapentin 400 mg p.o. 3 times daily
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
[2018-04-16] MEDS: Vitamins A & D Oint UD Foilpak TOP PRN (17:51)
[2018-04-17] MEDS: Methadone 40 mg Tab PO SCH (09:41)
[2018-04-17] MEDS: Multiple Vitamins Tab PO SCH (09:42)
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
[2018-04-17 19:28] LABS: BASO % 0.5 % (0.0-2.0); EOS # 0.2 K/uL (0.0-0.7); HEMOGLOBIN 13.2 g/dL (11.0-16.0); LYMPH # 1.7 K/uL (1.0-4.3); LYMPH % 38.3 % (20.0-40.0); MEAN CELL VOLUME 99.8 fL (81.0-99.0); MEAN CORPUSCULAR HEMOGLOBIN 32.9 pg (27.0-31.0); MEAN CORPUSCULAR HGB CONC 32.9 g/dL (33.0-37.0); MEAN PLATELET VOLUME 10.1 fL (7.2-11.7); MONO # 0.4 K/uL (0.0-0.8); MONO % 9.8 % (0.0-10.0); NEUT # 2.1 K/uL (1.8-7.0); NEUT % 47.4 % (50.0-75.0); RED CELL DISTRIBUTION WIDTH 15.5 % (11.5-14.5); WHITE BLOOD COUNT 4.4 K/uL (4.8-10.8)
[2018-04-17 19:49] LABS: ALB/GLOB RATIO 1.4 (1.0-2.1); ALBUMIN 4.7 g/dL (3.5-5.0); ALT/SGPT 396 U/L (9-52); AST/SGOT 504 U/L (14-36); BLOOD UREA NITROGEN 13 mg/dL (7-17); CALCIUM 9.7 mg/dl (8.6-10.4); GFR NON-AFRICAN AMERICAN > 60
--- NOTE | 2018-04-17 22:55 | PCM.PYCHPN ---
Psychiatric Progress Note - Psychiatric Progress Note Patient seen today, length of contact: 15 min Patient Chief Complaint: I am feeling little drowsy after increasing the dose of Zoloft. Problems Identified/Issues Discussed: Patient seen, chart reviewed, case discussed with the staff. Issues related to illness and treatment were discussed with the patient and staff. Reported compliant with treatment with no adverse effect. Calm and cooperative. Reported feeling better. Also reported feeling more drowsy after increasing the dose of Zoloft from 50- 100 mg. Education provided about the medications. Patient understood and agreed with current medication and dosage. Awake, alert and oriented x 3. Mood reported as okay. Affect appropriate. Memory intact. Aftercare discussed with the patient. Denied any delusions, auditory or visual hallucinations, suicidal ideations or homicidal ideations at the time of evaluation. Medical Problems: Hypertension Diagnostic Results: Reviewed DSM 5 Symptoms Update: Improving with treatment for Medication Change: No Medical Record Reviewed: Yes Consults ordered or reviewed: Reviewed Mental Status Examination - Cognitive Function Orientation: Person, Place, Situation, Time Memory: Intact Attention: WNL Concentration: WNL Association: WN Fund of Knowledge: [facility] Decription of patient's judgement and insights: Fair - Mood Mood: Depressed - Affect Affect: Depressed - Speech Speech: Soft - Formal Thought Process Formal Thought Process: No Impairment Psychotic Thoughts and Behaviors: None - Suicidal Ideation Suicidal Ideation: No - Homicidal Ideation Homicidal Ideation: No Goal/Treatment Plan - Goal/Treatment Plan Need for Continued Stay: Remain at risks for inpatient hospitalization, Discharge may exacerbated symptoms, Severe functional impairment Progress Toward Problem(s) and Goals/Treatment Plan: Patient education. Supportive therapy. Continue treatment as before. Estimated Date of D/C: 04/19/18 - Smoking Cessation Smoking Cessation Initiated: No
[2018-04-18 06:42] VITALS: TEMP 97.8
[2018-04-18] MEDS: Methadone 40 mg Tab PO SCH (09:15)
[2018-04-18] MEDS: Multiple Vitamins Tab PO SCH (09:15)
[2018-04-18 09:27] LABS: BASO % 0.6 % (0.0-2.0); EOS # 0.1 K/uL (0.0-0.7); EOS % 4.1 % (0.0-4.0); HEMOGLOBIN 13.5 g/dL (11.0-16.0); LYMPH # 1.5 K/uL (1.0-4.3); LYMPH % 42.5 % (20.0-40.0); MEAN CORPUSCULAR HEMOGLOBIN 33.5 pg (27.0-31.0); MEAN CORPUSCULAR HGB CONC 33.5 g/dL (33.0-37.0); MEAN PLATELET VOLUME 9.9 fL (7.2-11.7); MONO # 0.5 K/uL (0.0-0.8); MONO % 13.7 % (0.0-10.0); NEUT # 1.4 K/uL (1.8-7.0); NEUT % 39.1 % (50.0-75.0); NRBC % 0.1 % (0.0-2.0); RBC 4.02 Mil/uL (3.80-5.20); RED CELL DISTRIBUTION WIDTH 15.5 % (11.5-14.5); WHITE BLOOD COUNT 3.5 K/uL (4.8-10.8)
[2018-04-18 09:48] LABS: ALB/GLOB RATIO 1.3 (1.0-2.1); ALBUMIN 4.2 g/dL (3.5-5.0); ALT/SGPT 374 U/L (9-52); AST/SGOT 454 U/L (14-36); BLOOD UREA NITROGEN 14 mg/dL (7-17); CALCIUM 9.4 mg/dl (8.6-10.4); GFR NON-AFRICAN AMERICAN > 60
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
[2018-04-18] MEDS ORDERED: Alum-Mag Hydrox-Simethicone Susp (30 mL) PO PRN (15:29)
[2018-04-18] MEDS: Vitamins A & D Oint UD Foilpak TOP PRN (21:18)
[2018-04-19 06:43] VITALS: BP 117/66; PULSE 51; RESP 20; O2SAT 97
[2018-04-19 06:56] LABS: BASO % 0.7 % (0.0-2.0); EOS # 0.1 K/uL (0.0-0.7); EOS % 2.5 % (0.0-4.0); HEMOGLOBIN 12.9 g/dL (11.0-16.0); LYMPH # 1.5 K/uL (1.0-4.3); LYMPH % 31.5 % (20.0-40.0); MEAN CORPUSCULAR HEMOGLOBIN 33.4 pg (27.0-31.0); MEAN CORPUSCULAR HGB CONC 33.8 g/dL (33.0-37.0); MEAN PLATELET VOLUME 10.2 fL (7.2-11.7); MONO # 0.7 K/uL (0.0-0.8); MONO % 15.2 % (0.0-10.0); NEUT # 2.3 K/uL (1.8-7.0); NEUT % 50.1 % (50.0-75.0); NRBC % 0.1 % (0.0-2.0); RBC 3.85 Mil/uL (3.80-5.20); RED CELL DISTRIBUTION WIDTH 15.1 % (11.5-14.5); WHITE BLOOD COUNT 4.6 K/uL (4.8-10.8)
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
[2018-04-19 07:36] LABS: ALB/GLOB RATIO 1.3 (1.0-2.1); ALBUMIN 4.4 g/dL (3.5-5.0); ALT/SGPT 344 U/L (9-52); AST/SGOT 295 U/L (14-36); BLOOD UREA NITROGEN 14 mg/dL (7-17); CALCIUM 9.7 mg/dl (8.6-10.4); GFR NON-AFRICAN AMERICAN > 60
[2018-04-19] MEDS: Methadone 40 mg Tab PO SCH (09:35)
[2018-04-19] MEDS: Multiple Vitamins Tab PO SCH (09:37)
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
== END 2018-04-19 11:00 | disposition home or self-care (01) | DRG 751 ==
LOC: C.ER 10:08 → C.5E 13:59
PROC: GZ3ZZZZ Medication Management (ICD-10-PCS; principal; 2018-04-13)
PROC: GZ56ZZZ Individual Psychotherapy, Supportive (ICD-10-PCS; 2018-04-13)
PROC: GZHZZZZ Group Psychotherapy (ICD-10-PCS; 2018-04-13)
PROC: HZ81ZZZ Medication Management for Substance Abuse Treatment, Methadone Maintenance (ICD-10-PCS; 2018-04-13)
PROC: HZ2ZZZZ Detoxification Services for Substance Abuse Treatment (ICD-10-PCS; 2018-04-13)
DX: F33.2 Major depressive disorder, recurrent severe without psychotic features (principal); F10.231 Alcohol dependence with withdrawal delirium; R45.851 Suicidal ideations; F11.20 Opioid dependence, uncomplicated; F14.20 Cocaine dependence, uncomplicated; D69.59 Other secondary thrombocytopenia; T76.21XA Adult sexual abuse, suspected, initial encounter; R74.0 Nonspecific elevation of levels of transaminase and lactic acid dehydrogenase [LDH]; F17.210 Nicotine dependence, cigarettes, uncomplicated; Y90.6 Blood alcohol level of 120-199 mg/100 ml; K70.0 Alcoholic fatty liver; I10 Essential (primary) hypertension; F41.9 Anxiety disorder, unspecified; J45.909 Unspecified asthma, uncomplicated; Z59.0 Homelessness; Z56.0 Unemployment, unspecified

== ENCOUNTER 2018-04-21 19:45 | Inpatient (IN) | payer MEDICAID ==
[2018-04-21 19:46] VITALS: BMI 25.0
--- NOTE | 2018-04-21 20:39 | C.PDOC ---
History Of Present Illness 27 year old female presents to the ER with heavy ETOH intake reporting suicidal ideation for the past few days. Patient has Hx of ETOH abuse. Denies other complaints at this time. Chief Complaint (Nursing): Psychiatric Evaluation History Per: Patient History/Exam Limitations: no limitations Onset/Duration Of Symptoms: Days Current Symptoms Are (Timing): Still Present Modifying Factor(s): Alcohol Associated Symptoms: Suicidal Thoughts Recent travel outside of the [place]: No Past Medical History Reviewed: Historical Data, Nursing Documentation, Vital Signs Vital Signs: Last Vital Signs Temp 97.4 F L 04/21/18 20:08 Pulse 98 H 04/21/18 20:08 Resp 16 04/21/18 20:08 BP 120/76 04/21/18 20:08 Pulse Ox 97 04/21/18 20:08 - Medical History PMH: Anxiety, Asthma, Depression Denies: Diabetes, Hepatitis, HIV, HTN (denies), Seizures, Sexually Transmitted Disease - [facility] Procedures DETOXIFICATION SERVICES FOR SUBSTANCE ABUSE TREATMENT (04/13/18) GROUP CHALK CUTTER FOR SUBSTANCE ABUSE TREATMENT, PSYCHOEDUCATION (03/28/18) GROUP PSYCHOTHERAPY (04/13/18) INDIV PSYCHOTHERAPY FOR SUBSTANCE ABUSE TREATMENT, SUPPORT (03/28/18) INDIVIDUAL PSYCHOTHERAPY, SUPPORTIVE (04/13/18) MEDICATION MANAGEMENT (04/13/18) MEDS MGMT FOR SUBSTANCE ABUSE TREATMENT, METHADONE MAINT (04/13/18) PERIPHERAL NERVE SUTURE (01/10/06) TENDON SHEATH SUTURE (01/10/06) Family History: States: Unknown Family Hx - Social History Hx Alcohol Use: Yes Hx Substance Use: Yes - Immunization History Hx Tetanus Toxoid Vaccination: No Hx Influenza Vaccination: No Hx Pneumococcal Vaccination: No Review Of Systems Constitutional: Negative for: Fever, Chills Cardiovascular: Negative for: Chest Pain, Palpitations Respiratory: Negative for: Cough, Shortness of Breath Gastrointestinal: Negative for: Nausea, Vomiting Psych: Positive for: Suicidal ideation Physical Exam - Physical Exam Appears: Non-toxic, Other (Mild AOB, alert, conscious) Skin: Normal Color, Warm, Dry Head: Atraumatic, Normacephalic Eye(s): bilateral: Normal Inspection Oral Mucosa: Moist Chest: Symmetrical, No Tenderness Cardiovascular: Rhythm Regular Respiratory: Normal Breath Sounds, No Rales, No Rhonchi, No Wheezing Gastrointestinal/Abdominal: Soft, No Tenderness Back: No CVA Tenderness Neurological/Psych: Oriented x3, Normal Speech ED Course And Treatment - Laboratory Results Result Diagrams: 04/21/18 20:54 04/21/18 20:54 O2 Sat by Pulse Oximetry: 97 (room air) Pulse Ox Interpretation: Normal Progress Note: Blood work and urinalysis ordered. Crisis notified. Disposition Discussed With : Emma Barron Doctor Will See Patient In The: Hospital Counseled Patient/Family Regarding: Diagnosis - Disposition Disposition: HOSPITALIZED Disposition Time: 02:43 Condition: STABLE Forms: [facility] (Haitian) - POA Present On Arrival: None - Clinical Impression Clinical Impression: Major depression, Alcohol use disorder - Scribe Statement The provider has reviewed the documentation as recorded by the Scribyenni Peraza All medical record entries made by the Scribe were at my direction and personally dictated by me. I have reviewed the chart and agree that the record accurately reflects my personal performance of the history, physical exam, medical decision making, and the department course for this patient. I have also personally directed, reviewed, and agree with the discharge instructions and disposition.
--- NOTE | 2018-04-21 20:39 | C.PDOC ---
Chief Complaint (Nursing): Psychiatric Evaluation Past Medical History Vital Signs: Last Vital Signs Temp 97.4 F L 04/21/18 20:08 Pulse 98 H 04/21/18 20:08 Resp 16 04/21/18 20:08 BP 120/76 04/21/18 20:08 Pulse Ox 97 04/21/18 20:08 - Medical History PMH: Anxiety, Asthma, Depression Denies: Diabetes, Hepatitis, HIV, HTN (denies), Seizures, Sexually Transmitted Disease - [facility] Procedures DETOXIFICATION SERVICES FOR SUBSTANCE ABUSE TREATMENT (04/13/18) GROUP KILN MECHANIC FOR SUBSTANCE ABUSE TREATMENT, PSYCHOEDUCATION (03/28/18) GROUP PSYCHOTHERAPY (04/13/18) INDIV PSYCHOTHERAPY FOR SUBSTANCE ABUSE TREATMENT, SUPPORT (03/28/18) INDIVIDUAL PSYCHOTHERAPY, SUPPORTIVE (04/13/18) MEDICATION MANAGEMENT (04/13/18) MEDS MGMT FOR SUBSTANCE ABUSE TREATMENT, METHADONE MAINT (04/13/18) PERIPHERAL NERVE SUTURE (01/10/06) TENDON SHEATH SUTURE (01/10/06) - Social History Hx Alcohol Use: Yes Hx Substance Use: Yes - Immunization History Hx Tetanus Toxoid Vaccination: No Hx Influenza Vaccination: No Hx Pneumococcal Vaccination: No ED Course And Treatment O2 Sat by Pulse Oximetry: 97 Disposition - Disposition
[2018-04-21 20:58] LABS: BASO % 0.6 % (0.0-2.0); EOS % 0.1 % (0.0-4.0); HEMOGLOBIN 12.9 g/dL (11.0-16.0); LYMPH # 1.8 K/uL (1.0-4.3); LYMPH % 33.2 % (20.0-40.0); MEAN CELL VOLUME 98.7 fL (81.0-99.0); MEAN CORPUSCULAR HEMOGLOBIN 32.8 pg (27.0-31.0); MEAN CORPUSCULAR HGB CONC 33.2 g/dL (33.0-37.0); MEAN PLATELET VOLUME 9.3 fL (7.2-11.7); MONO # 0.6 K/uL (0.0-0.8); MONO % 11.9 % (0.0-10.0); NEUT # 2.9 K/uL (1.8-7.0); NEUT % 54.2 % (50.0-75.0); RBC 3.95 Mil/uL (3.80-5.20); RED CELL DISTRIBUTION WIDTH 15.5 % (11.5-14.5); WHITE BLOOD COUNT 5.4 K/uL (4.8-10.8)
[2018-04-21 21:00] LABS: HCG,QUALITATIVE URINE NEGATIVE (NEGATIVE)
[2018-04-21 21:04] LABS: SQUAMOUS EPITHIAL 5 /hpf (0-5); URINE BACTERIA RARE (<OCC); URINE BILIRUBIN NEGATIVE (NEGATIVE); URINE BLOOD NEGATIVE (NEGATIVE); URINE CLARITY Clear (Clear); URINE COLOR Straw (YELLOW); URINE GLUCOSE (UA) NORMAL (Normal); URINE LEUKOCYTE ESTERASE NEG Leu/uL (Negative); URINE PROTEIN NEGATIVE (NEGATIVE); URINE UROBILINOGEN NORMAL mg/dL (0.2-1.0)
[2018-04-21 21:10] LABS: BARBITURATES, UR NEGATIVE (NEGATIVE); OPIATES, UR NEGATIVE (NEGATIVE); PHENCYCLIDINE, UR NEGATIVE (NEGATIVE)
[2018-04-21 21:14] LABS: BENZODIAZEPINES, UR POSITIVE (NEGATIVE)
[2018-04-21 21:16] LABS: ALB/GLOB RATIO 1.4 (1.0-2.1); ALBUMIN 4.8 g/dL (3.5-5.0); ALT/SGPT 272 U/L (9-52); AST/SGOT 162 U/L (14-36); BLOOD UREA NITROGEN 7 mg/dL (7-17); CALCIUM 9.2 mg/dl (8.6-10.4); GFR NON-AFRICAN AMERICAN > 60
[2018-04-22] MEDS ORDERED: Potassium Chloride 20 mEq ER Tab PO ONE (03:29)
--- NOTE | 2018-04-22 04:23 | PCM.BM ---
<Crow Lynn - Last Filed: 04/22/18 04:21> Treatment Plan Problems - Problems identified on initial assessmt Altered Health Maintenance Date Initiated: 04/22/18 Time Initiated: 03:15 Assessment reference: NA Status: Active Medication Nonadherence Date Initiated: 04/22/18 Time Initiated: 03:15 Assessment reference: NA Status: Active Treatment assets and liabiliti Patient Assests: adapts well, cooperative, motivated, self-reliant, ADL independent, physically healthy, negotiates basic needs Patient Liabilities: substance abuse - Milieu Protocol Maintain good personal hygiene: daily Encourage regular showers, daily Remind patient to perform daily oral care, daily Assist patient to perform ADL's Conduct patient checks and document Observation sheet: Q15 minutes Maintain personal safety: every shift Educate patient to report safety concerns to staff, every shift Monitor environment for contraband/sharps Medication safety: Monitor for expected outcome, potential side effects: every shift, Assess barriers to learning: every shift, Assess readiness for medication education: every shift <Yara Haynes - Last Filed: 04/23/18 11:00> - Diagnosis (1) Major depression Status: Acute Interventions: 04/23/18 11:00 * Assess/adjust medications daily and /or as needed * See patient on an individual basis 7x/week to assess symptoms of depression * Monitor for side effects & effectiveness of medications * (2) Alcohol use disorder Status: Acute Interventions: 04/23/18 11:01 * Assess 7x/week regarding severity of withdrawal * Educate regarding risks, benefits, side effects and alternatives of medications * Use Motivational Interviewing for abstinence * Use CBT for relapse prevention * Medication management for withdrawal symptoms * Encourage medication assisted treatment * <Griselda Rizo - Last Filed: 04/23/18 12:07> Family Contact Family involvement: Family/SO is involved Family contact: Patient declines to allow family contact at present - Goals for Treatment Patient goals for treatment: "I want to go to rehab." Discharge/Continuing Care - Education Needs Education Needs: Patient Medication, Patient Coping Skills, Patient Placement options, Patient Community resources - Discharge Discharge Criteria: Tolerates medication w/o severe side effects, No longer exhibiting s/s of withdrawal, Reduction of target symptoms Discharge to:: Substance Abuse Rehab - Treatment Team Participation Discussed with Family/SO: No Was Patient/Family/SO present at Treatment Team Meeting: Yes
--- NOTE | 2018-04-22 10:16 | PCM.PSYCH ---
Initial Psychiatric Evaluation - Initial Psychiatric Evaluation Type of Admission: Voluntary Legal Status: Capacity Chief Complaint (in patient's own words): I relapsed on drinking and became increasingly depressed.' History of Present Illness and Precipitating Events: Patient is a 27 year old female, who is single, unemployed, and homeless presents to the ED with depressed mood, alcohol abuse and suicidal ideation with a plan to jump in front of bus. Pasteuriser Operator is familiar with this patient. Patient was just discharged from the [facility] [address] 2 days ago. Patient reports that she went to the methadone clinic for follow-up. However she reports that she relapsed on drinking and started abusing 2-3 pints of liquor daily. Yesterday she consumed more than 2 pints of liquor became increasingly depressed mood, developed suicidal ideation and came to the hospital to get help. Pt has been diagnosed with depression and anxiety in 2012, but is currently is not following up with any psychiatrist. Pt states she came to the hospital to get help because of an incident with her brother. Her brother had an automobile accident, which prompted her to realize that her life is important and that she wants to improve and live it. Pt states that although she is homeless now, she has spoken with her mother and that she is welcomed back to her parent's home. Pt states following her detox/treatment here, she will follow up at [facility], then return home. Pt states she has increasing visual disturbances, anxiety, lack of sleep, lack of appetite, chills, nausea, vomiting, and tremors, which are all related to her alcohol withdrawal. Pt scores a 10 on the CIWA scale. She reports depressed mood, feelings of hopelessness and helplessness, poor sleep and poor appetite. However she denies any auditory or visual hallucinations or any paranoia. PMH: denies Meds: Gabapentin, Trazodone Allergies: denies Current Medications: Active Medications Generic Name Dose Route Start Last Admin Trade Name Freq PRN Reason Stop Dose Admin Lorazepam 1 mg 04/22/18 03:26 04/22/18 10:00 Ativan PO 1 mg Q6H PRN Administration Symptoms of alcohol withdrawl Past Psychiatric History - Past Psychiatric History Previous Treatment History: Inpatient Pertinent Medical Hx (Current Medical&Sleep Prob, Allergies): Allergies Allergy/AdvReac Type Severity Reaction Status Date / Time No Known Allergies Allergy Verified 04/21/18 20:13 Methadone [Methadone HCl] 100 mg PO DAILY 03/28/18 Gabapentin [Neurontin] 400 mg PO TID #60 cap 04/19/18 Sertraline [Zoloft] 100 mg PO DAILY #30 tab 04/19/18 traZODone [Desyrel] 100 mg PO HS PRN #30 tab 04/19/18 Review of Systems - Review of Systems All systems: reviewed and no additional remarkable complaints except - Psychiatric Psychiatric: Anxiety, Irritability, Suicidal Ideation Mental Status Examination - Personal Presentation Personal Presentation: Looks stated age - Affect Affect: Constricted, Depressed - Motor Activity Motor Activity: Calm - Reliability in Providing Information Reliability in Providing Information: Good - Speech Speech: Organized - Mood Mood: Depressed, Anxious - Formal Thought Process Formal Thought Process: No Impairment - Obsessions/Compulsions Obsessions: No Compulsions: No - Cognitive Functions Orientation: Person, Place, Situation, Time Sensorium: Alert Attention/Concentration: Attentive Abstract Thinking: [place] Estimate of Intelligence: Below average Judgement: Imparied, as evidence by: Poor judgement, Imparied, as evidence by: Lack of insight into illness - Risk Risk: Suicidal, Diminished functioning - Limitations Limitations: Living alone DSM 5 DX - DSM 5 DSM 5 Diagnosis: Major depressive disorder recurrent severe without psychotic features Alcohol use disorder severe Alcohol withdrawal Opioid use disorder Severe on maintenance therapy - Recommended/Plan of Treatment Treatment Recommendations and Plan of Treatment: Major depressive disorder recurrent severe without psychotic features Alcohol use disorder severe Alcohol withdrawal Opioid use disorder Severe on maintenance therapy CBT Psychoeducation Supportive therapy group therapy milieu therapy Neurontin 400 mg p.o. 3 times daily Zoloft 100 p.o. daily Trazodone 50 mg p.o. nightly Ativan taper Methadone taper
[2018-04-22] MEDS ORDERED: Methadone 40 mg Tab PO ONE (11:15)
[2018-04-22] MEDS: Vitamins A & D Oint UD Foilpak TOP PRN (13:28)
[2018-04-22] MEDS ORDERED: Aluminum Hydroxide/Magnesium Hydroxide Susp (30 mL) PO PRN (14:41)
--- NOTE | 2018-04-23 11:02 | PCM.PYCHPN ---
Psychiatric Progress Note - Psychiatric Progress Note Patient seen today, length of contact: 15 min Patient Chief Complaint: I want to get off from methadone.' Problems Identified/Issues Discussed: Patient was seen and evaluated, chart reviewed discussed with staff. Patient reports depressed mood and at times feelings of hopelessness and helplessness. She still reports withdrawal symptoms from drinking including shakes, tremors, anxiety, headaches. She reports that she wants to get off of methadone and wants to taper off during her stay. She reports improvement in his sleep and appetite. She denies any auditory hallucinations or any paranoia. She is taking medication but denies any side effects. Supportive therapy was given. Medication Change: Yes Medical Record Reviewed: Yes Mental Status Examination - Cognitive Function Orientation: Person, Place, Situation, Time Memory: Intact Attention: WNL Concentration: Poor Association: WNL Fund of Knowledge: Poor - Mood Mood: Depressed, Anxious - Affect Affect: Constricted, Depressed - Formal Thought Process Formal Thought Process: No Impairment - Suicidal Ideation Suicidal Ideation: No - Homicidal Ideation Homicidal Ideation: No Goal/Treatment Plan - Goal/Treatment Plan Need for Continued Stay: Severe depression anxiety Progress Toward Problem(s) and Goals/Treatment Plan: Major depressive disorder recurrent severe without psychotic features Alcohol use disorder severe Alcohol withdrawal Opioid use disorder Severe on maintenance therapy CBT Psychoeducation Supportive therapy group therapy milieu therapy Neurontin 400 mg p.o. 3 times daily Zoloft 100 p.o. daily Trazodone 50 mg p.o. nightly Ativan taper Methadone taper from Methadone 80 mg - Smoking Cessation Smoking Cessation Initiated: No
[2018-04-23] MEDS: Vitamins A & D Oint UD Foilpak TOP PRN (17:04)
[2018-04-24] MEDS: Methadone 40 mg Tab PO SCH (10:27)
[2018-04-24] MEDS: Vitamins A & D Oint UD Foilpak TOP PRN (10:28)
[2018-04-25] MEDS: Methadone 40 mg Tab PO SCH (09:47)
--- NOTE | 2018-04-25 23:20 | PCM.PYCHPN ---
Psychiatric Progress Note - Psychiatric Progress Note Patient seen today, length of contact: 15 min Patient Chief Complaint: "OK I guess" Problems Identified/Issues Discussed: The pt is seen, chart reviewed, case is discussed with staff. The pt is compliant with medications and reports no side-effects. Symptoms are improving but needs more time to stabilize and to avoid relapse. Pt attends groups and activities. Support given, psycho-education provided. After care discussed. Medication Change: Yes Medical Record Reviewed: Yes Mental Status Examination - Cognitive Function Orientation: Person, Place, Situation, Time Memory: Intact Attention: WNL Concentration: Poor Association: WNL Fund of Knowledge: Poor - Mood Mood: Depressed, Anxious - Affect Affect: Constricted, Depressed - Formal Thought Process Formal Thought Process: No Impairment - Suicidal Ideation Suicidal Ideation: No - Homicidal Ideation Homicidal Ideation: No Goal/Treatment Plan - Goal/Treatment Plan Need for Continued Stay: Severe depression anxiety, Severe functional impairment Progress Toward Problem(s) and Goals/Treatment Plan: Continue medications Support and psychoeducation daily Attend groups and activities daily Individual therapy After care planning by YOGESH and the team
[2018-04-26 06:11] VITALS: O2SAT 59
[2018-04-26] MEDS: Methadone 40 mg Tab PO SCH (09:08)
--- NOTE | 2018-04-26 23:59 | PCM.PYCHPN ---
Psychiatric Progress Note - Psychiatric Progress Note Patient seen today, length of contact: 15 min Patient Chief Complaint: I would like to be maintained on methadone 80 mg' Problems Identified/Issues Discussed: Patient was seen and evaluated, chart reviewed discussed with staff. Patient reports some improvement in her depressed mood and reports some improvement in the feelings of hopelessness and helplessness. She still reports withdrawal symptoms from drinking including anxiety, and headaches. She reports that she wants to be maintained on methadone 80 mg. She also reports that she would like to go to a methadone program so that she can be tapered off gradually. She reports improvement in his sleep and appetite. She denies any auditory hallucinations or any paranoia. She is taking medication but denies any side effects. Supportive therapy was given. Medication Change: Yes Medical Record Reviewed: Yes Mental Status Examination - Cognitive Function Orientation: Person, Place, Situation, Time Memory: Intact Attention: WNL Concentration: Poor Association: WNL Fund of Knowledge: Poor - Mood Mood: Depressed, Anxious - Affect Affect: Constricted, Depressed - Formal Thought Process Formal Thought Process: No Impairment - Suicidal Ideation Suicidal Ideation: No - Homicidal Ideation Homicidal Ideation: No Goal/Treatment Plan - Goal/Treatment Plan Need for Continued Stay: Severe depression anxiety, Severe functional impairment Progress Toward Problem(s) and Goals/Treatment Plan: Major depressive disorder recurrent severe without psychotic features Alcohol use disorder severe Alcohol withdrawal Opioid use disorder Severe on maintenance therapy CBT Psychoeducation Supportive therapy group therapy milieu therapy Neurontin 400 mg p.o. 3 times daily Zoloft 100 p.o. daily Trazodone 100 mg p.o. nightly Ativan taper Methadone 80 mg daily - Smoking Cessation Smoking Cessation Initiated: No
[2018-04-27 06:38] VITALS: RESP 20
[2018-04-27] MEDS: Methadone 40 mg Tab PO SCH (09:40)
[2018-04-27] MEDS: Vitamins A & D Oint UD Foilpak TOP PRN (20:24)
[2018-04-28 06:14] VITALS: BP 104/67; PULSE 54; TEMP 98.2
[2018-04-28] MEDS: Methadone 40 mg Tab PO SCH (09:21)
--- NOTE | 2018-04-28 10:10 | PCM.PYCHDC ---
Mental Status Examination - Mental Status Examination Orientation: Person, Place, Situation, Time Memory: Intact Mood: Neutral Affect: Constricted Speech: Soft Attention: WNL Concentration: WNL Association: WNL Fund of Knowledge: WNL Formal Thought Process: No Impairment Description of patient's judgement and insight: good, fair Psychotic Thoughts and Behaviors: denies any AVH Suicidal Ideation: No Current Homicidal Ideation?: No Discharge Summary - Discharge Note Reason for Hospitalization: Patient is a 27 year old female, who is single, unemployed, and homeless presents to the ED with depressed mood, alcohol abuse and suicidal ideation with a plan to jump in front of bus. Cnc Machine Operator is familiar with this patient. Patient was just discharged from the [facility] [place] [address] 2 days ago. Patient reports that she went to the methadone clinic for follow-up. However she reports that she relapsed on drink ing and started abusing 2-3 pints of liquor daily. Yesterday she consumed more than 2 pints of liquor became increasingly depressed mood, developed suicidal ideation and came to the hospital to get help. Pt has been diagnosed with depression and anxiety in 2013, but is currently is not following up with any psychiatrist. Pt states she came to the hospital to get help because of an incident with her brother. Her brother had an automobile accident, which prompted her to realize that her life is important and that she wants to improve and live it. Pt states that although she is homeless now, she has spoken with her mother and that she is welcomed back to her parent's home. Pt states following her detox/treatment here, she will follow up at [facility], then return home. Pt states she has increasing visual disturbances, anxiety, lack of sleep, lack of appetite, chills, nausea, vomiting, and tremors, which are all related to her alcohol withdrawal. Pt scores a 10 on the CIWA scale. She reports depressed mood, feelings of hopelessness and helplessness, poor sleep and poor appetite. However she denies any auditory or visual hallucinations or any paranoia. Consultations:: List each consultation separately and include: 1. Reason for request. 2. Findings. 3. Follow-up Summary of Hospital Course include:: 1. Description of specific treatment plan utilized for patients during their course of treatmen. 2. Summarize the time- course for resolution of acute symptoms and/or regressed behaviors. 3. Describe issues identified and worked on during hospitalization. 4. Describe medication utilized. 5. Describe medical problems identified and treated. 6. Reassessment of suicide risk Summary of Hospital Course: Patient is a 27 year old female, who is single, unemployed, and homeless presents to the ED with depressed mood, alcohol abuse and suicidal ideation with a plan to jump in front of bus. Cnc Machine Operator is familiar with this patient. Patient was just discharged from the [facility] [place] [address] 2 days ago. Patient reports that she went to the methadone clinic for follow-up. However she reports that she relapsed on drinking and started abusing 2-3 pints of liquor daily. Yesterday she consumed more than 2 pints of liquor became increasingly depressed mood, developed suicidal ideation and came to the hospital to get help. Pt has been diagnosed with depression and anxiety in 2012, but is currently is not following up with any psychiatrist. Pt states she came to the hospital to get help because of an incident with her brother. Her brother had an automobile accident, which prompted her to realize that her life is important and that she wants to improve and live it. Pt states that although she is homeless now, she has spoken with her mother and that she is welcomed back to her parent's home. Pt states following her detox/treatment here, she will follow up at [facility], then return home. Pt states she has increasing visual disturbances, anxiety, lack of sleep, lack of appetite, chills, nausea, vomiting, and tremors, which are all related to her alcohol withdrawal. Pt scores a 10 on the CIWA scale. She reports depressed mood, feelings of hopelessness and helplessness, poor sleep and poor appetite. However she denies any auditory or visual hallucinations or any paranoia. PMH: denies Meds: Gabapentin, Trazodone Allergies: denies - Diagnosis (1) Major depression Current Visit: Yes Status: Acute (2) Alcohol use disorder Current Visit: Yes Status: Acute - Final Diagnosis (DSM 5) Condition upon Discharge: STABLE Disposition: HOME/ ROUTINE Follow-up Treatment Plan: Major depressive disorder recurrent severe without psychotic features Alcohol use disorder severe Alcohol withdrawal Opioid use disorder Severe on maintenance therapy CBT Psychoeducation Supportive therapy group therapy milieu therapy Neurontin 400 mg p.o. 3 times daily Zoloft 100 p.o. daily Trazodone 100 mg p.o. nightly Ativan taper Methadone 80 mg daily Prescriptions/Medication Reconciliation: Gabapentin [Neurontin] 400 mg PO TID #90 cap Sertraline [Zoloft] 100 mg PO DAILY #30 tab traZODone [Desyrel] 100 mg PO HS PRN #30 tab PRN Reason: Insomnia
== END 2018-04-28 11:00 | disposition home or self-care (01) | DRG 751 ==
LOC: C.ER 19:45 → C.5E 04-22 02:43
PROVIDERS: ADMIT Psychiatry & Neurology Psychiatry; ATTEND Psychiatry & Neurology Psychiatry
PROC: GZ3ZZZZ Medication Management (ICD-10-PCS; principal; 2018-04-22)
PROC: GZHZZZZ Group Psychotherapy (ICD-10-PCS; 2018-04-22)
PROC: HZ81ZZZ Medication Management for Substance Abuse Treatment, Methadone Maintenance (ICD-10-PCS; 2018-04-22)
PROC: HZ89ZZZ Medication Management for Substance Abuse Treatment, Other Replacement Medication (ICD-10-PCS; 2018-04-22)
PROC: GZ56ZZZ Individual Psychotherapy, Supportive (ICD-10-PCS; 2018-04-22)
DX: F33.2 Major depressive disorder, recurrent severe without psychotic features (principal); F11.20 Opioid dependence, uncomplicated; R45.851 Suicidal ideations; F10.239 Alcohol dependence with withdrawal, unspecified; F41.9 Anxiety disorder, unspecified; J45.909 Unspecified asthma, uncomplicated; F17.210 Nicotine dependence, cigarettes, uncomplicated; Y90.8 Blood alcohol level of 240 mg/100 ml or more; Z59.0 Homelessness; Z79.899 Other long term (current) drug therapy

== ENCOUNTER 2018-05-15 19:30 | Inpatient (IN) | payer MEDICAID ==
[2018-05-15 19:31] VITALS: BMI 22.8
[2018-05-15 20:30] LABS: SQUAMOUS EPITHIAL 21 /hpf (0-5); URINE BACTERIA OCC (<OCC); URINE BILIRUBIN NEGATIVE (NEGATIVE); URINE BLOOD 2+ (NEGATIVE); URINE CLARITY Hazy (Clear); URINE COLOR Yellow (YELLOW); URINE GLUCOSE (UA) NORMAL (Normal); URINE LEUKOCYTE ESTERASE 1+ Leu/uL (Negative); URINE PROTEIN NEGATIVE (NEGATIVE); URINE UROBILINOGEN NORMAL mg/dL (0.2-1.0)
[2018-05-15 20:32] LABS: BASO % 0.8 % (0.0-2.0); EOS # 0.1 K/uL (0.0-0.7); EOS % 2.3 % (0.0-4.0); HEMOGLOBIN 11.7 g/dL (11.0-16.0); LYMPH # 2.6 K/uL (1.0-4.3); LYMPH % 59.3 % (20.0-40.0); MEAN CELL VOLUME 97.9 fL (81.0-99.0); MEAN CORPUSCULAR HEMOGLOBIN 33.1 pg (27.0-31.0); MEAN CORPUSCULAR HGB CONC 33.8 g/dL (33.0-37.0); MONO # 0.3 K/uL (0.0-0.8); MONO % 6.9 % (0.0-10.0); NEUT # 1.4 K/uL (1.8-7.0); NEUT % 30.7 % (50.0-75.0); NRBC % 0.1 % (0.0-2.0); RBC 3.54 Mil/uL (3.80-5.20); RED CELL DISTRIBUTION WIDTH 15.1 % (11.5-14.5); WHITE BLOOD COUNT 4.4 K/uL (4.8-10.8)
[2018-05-15 20:33] LABS: BARBITURATES, UR NEGATIVE (NEGATIVE); BENZODIAZEPINES, UR NEGATIVE (NEGATIVE); OPIATES, UR NEGATIVE (NEGATIVE); PHENCYCLIDINE, UR NEGATIVE (NEGATIVE)
[2018-05-15 21:02] LABS: ALB/GLOB RATIO 1.6 (1.0-2.1); ALBUMIN 4.2 g/dL (3.5-5.0); ALT/SGPT 99 U/L (9-52); AST/SGOT 95 U/L (14-36); BLOOD UREA NITROGEN 6 mg/dL (7-17); CALCIUM 8.5 mg/dl (8.6-10.4); GFR NON-AFRICAN AMERICAN > 60
--- NOTE | 2018-05-16 03:59 | C.PDOC ---
History Of Present Illness 27 year old female presents to the ED for evaluation of suicidal ideation. Patient states she wants to hurt herself, admits to drinking alcohol on a daily basis. Patient reports she currently does not have a specific plan. Patient de nies HI, hallucinations, other complaints at this time. Time Seen by Provider: 05/15/18 19:54 Chief Complaint (Nursing): Psychiatric Evaluation History Per: Patient History/Exam Limitations: intoxication Onset/Duration Of Symptoms: Days Current Symptoms Are (Timing): Still Present Suicide/Self Injury Attempted (Context): None Modifying Factor(s): Alcohol Associated Symptoms: Depression, Suicidal Thoughts. denies: Suicidal Plan Recent travel outside of the [place]: No Additional History Per: Patient Past Medical History Reviewed: Historical Data, Nursing Documentation, Vital Signs Vital Signs: Last Vital Signs Temp 98.6 F 05/16/18 03:21 Pulse 91 H 05/16/18 03:21 Resp 16 05/16/18 03:21 BP 119/68 05/16/18 03:21 Pulse Ox 98 05/16/18 03:21 - Medical History PMH: Anxiety, Asthma, Depression, Seizures (ETOH related) Denies: Diabetes, Hepatitis, HIV, Chronic Kidney Disease, Sexually Transmitted Disease Comment Only: HTN (denies) Surgical History: No Surg Hx - [facility] Procedures DETOXIFICATION SERVICES FOR SUBSTANCE ABUSE TREATMENT (04/13/18) 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 FOR SUBSTANCE ABUSE TREATMENT, PSYCHOEDUCATION (03/28/18) GROUP PSYCHOTHERAPY (04/22/18) INDIV PSYCHOTHERAPY FOR SUBSTANCE ABUSE TREATMENT, SUPPORT (03/28/18) INDIVIDUAL PSYCHOTHERAPY, SUPPORTIVE (04/22/18) MEDICATION MANAGEMENT (04/22/18) MEDS MGMT FOR SUBSTANCE ABUSE TREATMENT, METHADONE MAINT (04/22/18) MEDS MGMT FOR SUBSTANCE ABUSE TREATMENT, OTH REPL MED (04/22/18) PERIPHERAL NERVE SUTURE (01/10/06) TENDON SHEATH SUTURE (01/10/06) Family History: States: Unknown Family Hx - Social History Hx Alcohol Use: Yes Hx Substance Use: Yes - Immunization History Hx Tetanus Toxoid Vaccination: No Hx Influenza Vaccination: No Hx Pneumococcal Vaccination: No Review Of Systems Constitutional: Negative for: Fever, Chills Cardiovascular: Negative for: Chest Pain, Palpitations Respiratory: Negative for: Shortness of Breath Gastrointestinal: Negative for: Nausea, Vomiting, Abdominal Pain Skin: Negative for: Rash Neurological: Negative for: Weakness, Numbness Psych: Negative for: Depression, Suicidal ideation Physical Exam - Physical Exam Appears: Non-toxic, No Acute Distress, Other (AOB) Skin: Normal Color, Warm, Dry Head: Atraumatic, Normacephalic Eye(s): bilateral: Normal Inspection Neck: Normal ROM, Supple Chest: Symmetrical Cardiovascular: Rhythm Regular Respiratory: Normal Breath Sounds, No Rales, No Rhonchi, No Wheezing Gastrointestinal/Abdominal: Soft, No Tenderness, No Guarding, No Rebound Extremity: Normal ROM, No Tenderness, No Swelling Neurological/Psych: Oriented x3, Normal Speech, Normal Cognition Gait: Steady ED Course And Treatment - Laboratory Results Result Diagrams: 05/15/18 20:28 05/15/18 20:28 Lab Results: Total Bilirubin 0.2 mg/dL (0.2-1.3) 05/15/18 20:28 AST 95 U/L (14-36) H D 05/15/18 20:28 ALT 99 U/L (9-52) H D 05/15/18 20:28 Alkaline Phosphatase 75 U/L (38-126) 05/15/18 20:28 Total Protein 6.8 g/dL (6.3-8.3) 05/15/18 20:28 Albumin 4.2 g/dL (3.5-5.0) 05/15/18 20:28 Globulin 2.6 gm/dL (2.2-3.9) 05/15/18 20:28 Albumin/Globulin Ratio 1.6 (1.0-2.1) 05/15/18 20:28 Urine Color Yellow (YELLOW) 05/15/18 20:13 Urine Clarity Hazy (Clear) 05/15/18 20:13 Urine pH 6.0 (5.0-8.0) 05/15/18 20:13 Ur Specific [place] 1.003 (1.003-1.030) 05/15/18 20:13 Urine Protein Negative mg/dL (NEGATIVE) 05/15/18 20:13 Urine Glucose (UA) Normal mg/dL (Normal) 05/15/18 20:13 Urine Ketones Negative mg/dL (NEGATIVE) 05/15/18 20:13 Urine Blood 2+ (NEGATIVE) H 05/15/18 20:13 Urine Nitrate Negative (NEGATIVE) 02/02/19 20:13 Urine Bilirubin Negative (NEGATIVE) 05/15/18 20:13 Urine Urobilinogen Normal mg/dL (0.2-1.0) 05/15/18 20:13 Ur Leukocyte Esterase 1+ Taylor/uL (Negative) H 05/15/18 20:13 Urine WBC (Auto) 8 /hpf (0-5) H 05/15/18 20:13 Urine RBC (Auto) 3 /hpf (0-3) 05/15/18 20:13 Ur Squamous Epith Cells 21 /hpf (0-5) H 05/15/18 20:13 Urine Bacteria Occ (<OCC) H 05/15/18 20:13 Urine HCG, Qual Negative (NEGATIVE) 05/15/18 20:13 Urine HCG, Qual Negative (NEGATIVE) 05/15/18 20:13 ECG: Interpreted By Me, Viewed By Me ECG Rhythm: Sinus Rhythm Rate From EC (BPM) O2 Sat by Pulse Oximetry: 98 (On RA) Pulse Ox Interpretation: Normal Medical Decision Making Medical Decision Making: Plan: * EKG * Labs * UA * Crisis eval * Librium 25 mg PO Patient is medically cleared for crisis evaluation Disposition - Disposition Disposition: HOSPITALIZED Disposition Time: 21:00 Condition: STABLE - Clinical Impression Clinical Impression: Alcohol abuse, Major depression - Scribe Statement The provider has reviewed the documentation as recorded by the Scribe Ashok Knowles All medical record entries made by the Scribe were at my direction and personally dictated by me. I have reviewed the chart and agree that the record accurately reflects my personal performance of the history, physical exam, medical decision making, and the department course for this patient. I have also personally directed, reviewed, and agree with the discharge instructions and disposition.
[2018-05-16 05:46] VITALS: O2SAT 98
--- NOTE | 2018-05-16 06:09 | PCM.BM ---
<Jus Hicks Lor - Last Filed: 05/16/18 06:06> Treatment Plan Problems - Problems identified on initial assessmt Suicidal Ideation Date Initiated: 05/16/18 Time Initiated: 05:15 Assessment reference: NA Status: Monitor Low Motivation to Change Date Initiated: 05/16/18 Time Initiated: 05:15 Assessment reference: NA Status: Active Altered Family Process Date Initiated: 05/16/18 Time Initiated: 05:15 Assessment reference: NA Status: Active Treatment assets and liabiliti Patient Assests: cooperative, ADL independent, negotiates basic needs, cognitiv ang intact Patient Liabilities: financial problems, relationship conflicts (Lost custody of children), substance abuse (Hx of Alcohol, Methadone, and Cocaine use) - Milieu Protocol Maintain good personal hygiene: daily Encourage regular showers, daily Remind patient to perform daily oral care, every shift Assist patient to perform ADL's Conduct patient checks and document Observation sheet: Q15 minutes Maintain personal safety: every shift Educate patient to report safety concerns to staff, every shift Monitor environment for contraband/sharps Medication safety: Monitor for expected outcome, potential side effects: every shift, Assess barriers to learning: every shift, Assess readiness for medication education: every shift <Yara Haynes - Last Filed: 05/17/18 11:58> - Diagnosis (1) Major depressive disorder, recurrent episode Status: Acute Interventions: 05/17/18 11:38 * Assess/adjust medications daily and /or as needed * See patient on an individual basis 7x/week to assess symptoms of depression * Monitor for side effects & effectiveness of medications * (2) Heroin abuse Status: Acute Interventions: 05/17/18 11:58 * Assess 7x/week regarding severity of withdrawal * Educate regarding risks, benefits, side effects and alternatives of medications * Use Motivational Interviewing for abstinence * Use CBT for relapse prevention * Medication management for withdrawal symptoms * Encourage medication assisted treatment * <Griselda Rizo - Last Filed: 05/17/18 13:48> Family Contact Family involvement: Famliy/SO not involved - Goals for Treatment Patient goals for treatment: "I want to go to rehab." Discharge/Continuing Care - Education Needs Education Needs: Patient Medication, Patient Coping Skills, Patient Placement options, Patient Community resources - Discharge Discharge Criteria: Tolerates medication w/o severe side effects, No longer exhibiting s/s of withdrawal, Reduction of target symptoms Discharge to:: Substance Abuse Rehab - Treatment Team Participation Discussed with Family/SO: No Was Patient/Family/SO present at Treatment Team Meeting: Yes
[2018-05-16] MEDS: Multiple Vitamins Tab PO SCH (09:57)
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
[2018-05-16] MEDS: Vitamins A & D Oint UD Foilpak TOP PRN (20:14)
--- NOTE | 2018-05-17 09:16 | CARD ---
APPROVED REPORT Date of service: 05/15/2018 EKG Measurement Heart [id number] <Conclusion> Normal sinus rhythm Normal ECG
--- NOTE | 2018-05-17 09:52 | PCM.PYCHPN ---
Psychiatric Progress Note - Psychiatric Progress Note Patient seen today, length of contact: 15 min Patient Chief Complaint: I was feeling depressed and he relapsed on heroin and drinking Problems Identified/Issues Discussed: Patient was seen and evaluated, chart reviewed and discussed with the staff. Patient reports depressed mood and at times feelings of helplessness. She reports withdrawal symptoms including nausea, cramps, joint pains, sweating, headaches. She reports a wound/bedsore on her right side, wound care was consulted She denies any auditory hallucinations or any paranoia She is taking medication but denies any side effects. Supportive therapy was given. Medication Change: Yes Medical Record Reviewed: Yes Mental Status Examination - Cognitive Function Orientation: Person, Place, Situation, Time Memory: Intact Attention: WNL Concentration: Poor Association: WNL Fund of Knowledge: Poor - Mood Mood: Depressed, Anxious - Affect Affect: Constricted, Depressed - Speech Speech: Soft - Formal Thought Process Formal Thought Process: No Impairment - Suicidal Ideation Suicidal Ideation: No - Homicidal Ideation Homicidal Ideation: No Goal/Treatment Plan - Goal/Treatment Plan Need for Continued Stay: Remain at risks for inpatient hospitalization, Discharge may exacerbated symptoms Progress Toward Problem(s) and Goals/Treatment Plan: Major depressive disorder recurrent severe without psychotic features. Alcohol withdrawal. Alcohol use disorder severe Opioid use disorder severe Patient education. Supportive therapy, group therapy and milieu therapy Ativan as needed for alcohol withdrawal symptoms Methadone taper for opioid withdrawal Zoloft for depression Neurontin for augmentation Trazodone for insomnia Hydroxyzine for anxiety Continue withdrawal medications including clonidine/Zofran/Imodium etc Continue vitamins including thiamine/multivitamin/folic acid
[2018-05-17] MEDS: Multiple Vitamins Tab PO SCH (09:59)
[2018-05-17] MEDS: Vitamins A & D Oint UD Foilpak TOP PRN (21:00)
[2018-05-18] MEDS: Multiple Vitamins Tab PO SCH (09:55)
[2018-05-18 10:04] VITALS: RESP 20
[2018-05-19] MEDS: Multiple Vitamins Tab PO SCH (09:03)
[2018-05-19] MEDS ORDERED: Influenza Vaccine 60 mcg/0.5 mL SYR (4YR UP) IM ONE (10:00)
[2018-05-19] MEDS ORDERED: Pneumococcal 23-Valent Vaccine IM ONE (10:00)
--- NOTE | 2018-05-19 23:42 | PCM.PYCHPN ---
Psychiatric Progress Note - Psychiatric Progress Note Patient seen today, length of contact: 15 min Patient Chief Complaint: I am feeling little better. Problems Identified/Issues Discussed: Patient was seen and evaluated, chart reviewed and discussed with the staff. Per staff, patient appears better than before and she has started socializing. Patient reports some improvement in her depressed mood and reports improvement in the feelings of helplessness. She reports some improvement in the withdrawal symptoms as well. She denies any auditory or visual hallucinations or any paranoia She is taking medication but denies any side effects. Supportive therapy was given. Medication Change: Yes Medical Record Reviewed: Yes Mental Status Examination - Cognitive Function Orientation: Person, Place, Situation, Time Memory: Intact Attention: WNL Concentration: Poor Association: WNL Fund of Knowledge: Poor - Mood Mood: Depressed, Anxious - Affect Affect: Constricted, Depressed - Speech Speech: Soft - Formal Thought Process Formal Thought Process: No Impairment - Suicidal Ideation Suicidal Ideation: No - Homicidal Ideation Homicidal Ideation: No Goal/Treatment Plan - Goal/Treatment Plan Need for Continued Stay: Remain at risks for inpatient hospitalization, Discharge may exacerbated symptoms Progress Toward Problem(s) and Goals/Treatment Plan: Major depressive disorder recurrent severe without psychotic features. Alcohol withdrawal. Alcohol use disorder severe Opioid use disorder severe Patient education. Supportive therapy, group therapy and milieu therapy Ativan as needed for alcohol withdrawal symptoms Methadone taper for opioid withdrawal Zoloft for depression Neurontin for augmentation Trazodone for insomnia Hydroxyzine for anxiety Continue withdrawal medications including clonidine/Zofran/Imodium etc Continue vitamins including thiamine/multivitamin/folic acid
[2018-05-20 06:27] VITALS: BP 131/78; PULSE 54; TEMP 98.6
--- NOTE | 2018-05-20 10:07 | PCM.PYCHDC ---
Mental Status Examination - Mental Status Examination Orientation: Person, Place, Situation, Time Memory: Intact Mood: Neutral Affect: Constricted Speech: Soft Attention: WNL Concentration: WNL Association: WNL Fund of Knowledge: WNL Formal Thought Process: No Impairment Description of patient's judgement and insight: good, fair Psychotic Thoughts and Behaviors: denies aNy AVH Suicidal Ideation: No Current Homicidal Ideation?: No Discharge Summary - Discharge Note Reason for Hospitalization: Patient is a 27 years old, single, unemployed, female with history of depression, alcohol and opioid use was admitted due to worsening of depression and withdrawing from alcohol and heroin. Patient reported she was noncompliant with the treatment. She was recently admitted at [facility] and discharged on sertraline. Patient relapsed on alcohol after 11 days of sobriety. Alcohol: She started drinking alcohol at 17 years of age, increased gradually. She was drinking up to 1 L of vodka daily. Longest period of abstinence was 6 years until 3 months ago when she relapsed. She was drinking 1 L of vodka daily. Last use was yesterday. History of 2 previous detox and 1 rehab. Opioid: Patient started using heroin at 17 years of age. Patient was in methadone maintenance treatment program for last 6 years and currently she was taking 80 mg of methadone. Patient did not go to the program for about 2 weeks and her case was terminated. Reported that she got methadone 80 mg from her friend one day before admission. Cigarettes: She is smoking 2 packs of cigarettes daily and is requesting for nicotine patch. She has history of right wrist surgery. Patient born in [place] and has some college education. Her last job was one month ago. She was never and has 2 children ages 4 and 5 years of age, who lived with with their father. Patient lives with her mother. Consultations:: List each consultation separately and include: 1. Reason for request. 2. Findings. 3. Follow-up Summary of Hospital Course include:: 1. Description of specific treatment plan utilized for patients during their course of treatmen. 2. Summarize the time- course for resolution of acute symptoms and/or regressed behaviors. 3. Describe issues identified and worked on during hospitalization. 4. Describe medication utilized. 5. Describe medical problems identified and treated. 6. Reassessment of suicide risk Summary of Hospital Course: During the course of her stay, patient (pt) started progressively improving and she no longer remained irritable, depressed and anxious. Her mood and anxiety were improved and she started attending groups and meetings and started socializing. Patient denied any feelings of hopelessness, helplessness, and worthlessness, denied any problem with the sleep or appetite, denied suicidal ideation or homicidal ideation. Pt denied any auditory or visual hallucinations. Some changes were made in her current medications and patient was discharged on following medications. She tolerated these medications very well and denied any side effects. - Diagnosis (1) Major depressive disorder, recurrent episode Status: Acute (2) Heroin abuse Status: Acute - Final Diagnosis (DSM 5) Condition upon Discharge: STABLE DSM 5: Major depressive disorder recurrent severe without psychotic features. Alcohol withdrawal. Alcohol use disorder severe Opioid use disorder severe Disposition: HOME/ ROUTINE Follow-up Treatment Plan: A/P: Pt to follow up with [facility]. Education: Pt was educated and counseled about the risks and benefits of taking and not taking medications. Pt was educated and counseled about the risks of drinking and abusing drugs. Pt was educated and counseled to go to the ER or call 911 if pt develop suicidal ideation or homicidal ideation, worsening of symptoms or severe side effects of the meds. Prescriptions/Medication Reconciliation: Gabapentin [Neurontin] 400 mg PO TID #90 cap Sertraline [Zoloft] 100 mg PO DAILY #30 tab traZODone [Desyrel] 50 mg PO HS PRN #30 tab PRN Reason: Insomnia
[2018-05-20] MEDS: Multiple Vitamins Tab PO SCH (10:25)
== END 2018-05-20 11:30 | disposition home or self-care (01) | DRG 751 ==
LOC: C.ER 19:30 → C.5E 05-16 04:14
PROC: GZHZZZZ Group Psychotherapy (ICD-10-PCS; principal; 2018-05-16)
PROC: GZ56ZZZ Individual Psychotherapy, Supportive (ICD-10-PCS; 2018-05-16)
DX: F33.2 Major depressive disorder, recurrent severe without psychotic features (principal); L89.90 Pressure ulcer of unspecified site, unspecified stage; R45.851 Suicidal ideations; F41.9 Anxiety disorder, unspecified; F17.210 Nicotine dependence, cigarettes, uncomplicated; J45.909 Unspecified asthma, uncomplicated; Z91.19 Patient's noncompliance with other medical treatment and regimen; G47.00 Insomnia, unspecified; F11.23 Opioid dependence with withdrawal; F10.230 Alcohol dependence with withdrawal, uncomplicated; F10.220 Alcohol dependence with intoxication, uncomplicated; Y90.8 Blood alcohol level of 240 mg/100 ml or more

== ENCOUNTER 2018-06-06 10:39 | Inpatient (IN) | payer MEDICAID ==
[2018-06-06 10:39] VITALS: BMI 23.3
--- NOTE | 2018-06-06 11:11 | C.PDOC ---
History Of Present Illness 27 year old female brought to ED by brother due to suicidal ideation. Patient has history of alcohol dependency with severe withdrawal including seizures and major depressive disorder. She has a prior history of heroin use but denies current use. Patient says she was recently seen at [facility] [facility] after her friend found her inebriated. Patient signed out of [facility] AMA. Patient admits to drinking a pint of vodka after leaving [facility]. Brother reports that she has been sober for 6 years, however the patient began drinking 3 months ago due to anniversary of sister's . Patient reports that her children where taken away from her, which contributed to her depression. 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 She denies any hallucinations, suicidal plan, injury to herself, headache, dizziness, chest pain, SOB, nausea, vomiting, and abdominal pain. Time Seen by Provider: 06/06/18 11:05 Chief Complaint (Nursing): Substance Abuse History Per: Patient, Family History/Exam Limitations: no limitations Onset/Duration Of Symptoms: Hrs Current Symptoms Are (Timing): Still Present Modifying Factor(s): Alcohol, Other (heroin) Associated Symptoms: Suicidal Thoughts. denies: Suicidal Plan Additional History Per: Patient, Family Past Medical History Reviewed: Historical Data, Nursing Documentation, Vital Signs Vital Signs: Last Vital Signs Temp 98.7 F 06/06/18 10:56 Pulse 85 06/06/18 10:56 Resp 20 06/06/18 10:56 BP 128/83 06/06/18 10:56 Pulse Ox 98 06/06/18 10:56 - Medical History PMH: Anxiety, Asthma, Depression, Seizures (ETOH related) Denies: Diabetes, Hepatitis, HIV, Chronic Kidney Disease, Sexually Transmitted Disease Comment Only: HTN (denies) Surgical History: No Surg Hx - [facility] Procedures DETOXIFICATION SERVICES FOR SUBSTANCE ABUSE TREATMENT (04/13/18) GROUP DIRECTOR CLINICAL OPERATIONS FOR SUBSTANCE ABUSE TREATMENT, PSYCHOEDUCATION (03/28/18) GROUP PSYCHOTHERAPY (05/16/18) INDIV PSYCHOTHERAPY FOR SUBSTANCE ABUSE TREATMENT, SUPPORT (03/28/18) INDIVIDUAL PSYCHOTHERAPY, SUPPORTIVE (05/16/18) MEDICATION MANAGEMENT (05/27/18) MEDS MGMT FOR SUBSTANCE ABUSE TREATMENT, METHADONE MAINT (04/22/18) MEDS MGMT FOR SUBSTANCE ABUSE TREATMENT, OTH REPL MED (04/22/18) PERIPHERAL NERVE SUTURE (01/10/06) TENDON SHEATH SUTURE (01/10/06) Family History: States: Unknown Family Hx - Social History Hx Alcohol Use: Yes Hx Substance Use: Yes - Immunization History Hx Tetanus Toxoid Vaccination: No Hx Influenza Vaccination: No Hx Pneumococcal Vaccination: No Review Of Systems Constitutional: Negative for: Fever, Chills, Weakness Cardiovascular: Negative for: Chest Pain Respiratory: Negative for: Shortness of Breath Gastrointestinal: Negative for: Nausea, Vomiting, Abdominal Pain Neurological: Positive for: Seizures. Negative for: Weakness, Numbness, Headache, Dizziness Psych: Positive for: Depression (major depressive disorder), Suicidal ideation, Withdrawal Physical Exam - Physical Exam Appears: Non-toxic, No Acute Distress Skin: Normal Color, Warm, Dry Head: Atraumatic, Normacephalic Eye(s): bilateral: Normal Inspection, PERRL Neck: Normal ROM, Supple Chest: Symmetrical, No Deformity Cardiovascular: Rhythm Regular, No Murmur Respiratory: Normal Breath Sounds, No Accessory Muscle Use Gastrointestinal/Abdominal: Soft, No Tenderness Extremity: No Pedal Edema Neurological/Psych: Oriented x3, Normal Speech, Normal Cognition, Normal Motor, Normal Sensation ED Course And Treatment - Laboratory Results Result Diagrams: 06/06/18 12:03 06/06/18 12:03 O2 Sat by Pulse Oximetry: 98 (RA) Medical Decision Making Medical Decision Making: Impression : Major Depressive; Alcohol abuse, severe Plan: Patient placed on 1:1 observation. Labs ordered with drug screen and UA Ativan given Crisis assessed patient and Dr. 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 (Cassy Le) - Scribe Statement The provider has reviewed the documentation as recorded by the Scribe (Cassy Le) All medical record entries made by the Scribe were at my direction and personally dictated by me. I have reviewed the chart and agree that the record accurately reflects my personal performance of the history, physical exam, medical decision making, and the department course for this patient. I have also personally directed, reviewed, and agree with the discharge instructions and disposition. Decision To Admit - Pt Status Changed To: Hospital Disposition Of: Inpatient - Admit Certification Admit to Inpatient:: After my assessment, the patient will require hospitalization for at least two midnights. This is because of the severity of symptoms shown, intensity of services needed, and/or the medical risk in this patient being treated as an outpatient. - InPatient: Physician Admission Certification: I certify that this patient requires 2 or more midnights of care for the following reason:: Major depressive disorder; Alcohol abuse, severe - . Bed Request Type: Psychiatry Admitting Physician: Anila Tavarez Patient Diagnosis: Major depressive disorder, recurrent episode, Alcohol abuse
[2018-06-06 12:11] LABS: SQUAMOUS EPITHIAL 2 /hpf (0-5); URINE BACTERIA RARE (<OCC); URINE BILIRUBIN NEGATIVE (NEGATIVE); URINE BLOOD NEGATIVE (NEGATIVE); URINE CLARITY Clear (Clear); URINE COLOR Yellow (YELLOW); URINE GLUCOSE (UA) NORMAL (Normal); URINE LEUKOCYTE ESTERASE TRACE Leu/uL (Negative); URINE PROTEIN NEGATIVE (NEGATIVE); URINE UROBILINOGEN NORMAL mg/dL (0.2-1.0)
[2018-06-06 12:12] LABS: BASO % 0.5 % (0.0-2.0); EOS % 0.5 % (0.0-4.0); LYMPH # 1.8 K/uL (1.0-4.3); LYMPH % 35.5 % (20.0-40.0); MEAN CELL VOLUME 99.5 fL (81.0-99.0); MEAN CORPUSCULAR HEMOGLOBIN 33.4 pg (27.0-31.0); MEAN CORPUSCULAR HGB CONC 33.6 g/dL (33.0-37.0); MEAN PLATELET VOLUME 8.4 fL (7.2-11.7); MONO # 0.6 K/uL (0.0-0.8); MONO % 11.1 % (0.0-10.0); NEUT # 2.6 K/uL (1.8-7.0); NEUT % 52.4 % (50.0-75.0); NRBC % 0.1 % (0.0-2.0); RBC 3.87 Mil/uL (3.80-5.20); RED CELL DISTRIBUTION WIDTH 15.7 % (11.5-14.5)
[2018-06-06 12:32] LABS: ALB/GLOB RATIO 1.4 (1.0-2.1); ALBUMIN 4.6 g/dL (3.5-5.0); ALT/SGPT 51 U/L (9-52); AST/SGOT 55 U/L (14-36); BLOOD UREA NITROGEN 10 mg/dL (7-17); GFR NON-AFRICAN AMERICAN > 60
[2018-06-06 13:29] LABS: BARBITURATES, UR NEGATIVE (NEGATIVE); BENZODIAZEPINES, UR NEGATIVE (NEGATIVE); OPIATES, UR NEGATIVE (NEGATIVE); PHENCYCLIDINE, UR NEGATIVE (NEGATIVE)
[2018-06-06 16:19] VITALS: RESP 18; O2SAT 99
[2018-06-06] MEDS: Multiple Vitamins Tab PO SCH (18:27)
--- NOTE | 2018-06-06 19:49 | PCM.BM ---
<Herlinda Deng - Last Filed: 06/06/18 19:45> Treatment Plan Problems - Problems identified on initial assessmt Defensive coping Date Initiated: 06/06/18 Time Initiated: 16:30 Assessment reference: NA Status: Active Suicidal Ideation Date Initiated: 06/06/18 Time Initiated: 16:30 Assessment reference: NA Status: Active Treatment assets and liabiliti Patient Assests: cooperative, ADL independent, negotiates basic needs, cognitively intact Patient Liabilities: substance abuse (Alcohol ) - Milieu Protocol Maintain good personal hygiene: daily Encourage regular showers, daily Remind patient to perform daily oral care, every shift Assist patient to perform ADL's Conduct patient checks and document Observation sheet: Q15 minutes Maintain personal safety: every shift Educate patient to report safety concerns to staff, every shift Monitor environment for contraband/sharps Medication safety: Monitor for expected outcome, potential side effects: every shift, Assess barriers to learning: every shift, Assess readiness for medication education: every shift <Yara Haynes - Last Filed: 06/07/18 11:08> - Diagnosis (1) Major depressive disorder, recurrent episode Status: Chronic Interventions: 06/07/18 11:08 * Assess/adjust medications daily and /or as needed * See patient on an individual basis 7x/week to assess symptoms of depression * Monitor for side effects & effectiveness of medications * (2) Alcohol use disorder Status: Acute Interventions: 06/07/18 11:08 * Assess 7x/week regarding severity of withdrawal * Educate regarding risks, benefits, side effects and alternatives of medications * Use Motivational Interviewing for abstinence * Use CBT for relapse prevention * Medication management for withdrawal symptoms * Encourage medication assisted treatment * <Margarette Bettencourt - Last Filed: 06/07/18 11:53> Family Contact Family involvement: Patient does not wish Family/SO involvement Family contact: Patient declines to allow family contact at present - Goals for Treatment Patient goals for treatment: "I am going to a rehab in [place], [place]." Discharge/Continuing Care - Education Needs Education Needs: Patient Medication, Patient Diagnosis/Disease Process, Patient Coping Skills, Patient Placement options, Patient Community resources - Discharge Discharge Criteria: Free of Suicidal thoughts, Normal sleep pattern, Ability to care for self, No longer exhibiting s/s of withdrawal, Reduction of target symptoms Discharge to:: Substance Abuse Rehab - Treatment Team Participation Discussed with Family/SO: No Was Patient/Family/SO present at Treatment Team Meeting: Yes
[2018-06-07 06:21] VITALS: TEMP 98.9
[2018-06-07] MEDS: Multiple Vitamins Tab PO SCH (10:07)
[2018-06-07] MEDS ORDERED: Vitamins A & D Oint UD Foilpak TOP PRN (10:36)
--- NOTE | 2018-06-07 10:44 | PCM.PSYCH ---
Initial Psychiatric Evaluation - Initial Psychiatric Evaluation Type of Admission: Voluntary Legal Status: Capacity Chief Complaint (in patient's own words): I started drinking. Current Medications: Active Medications Generic Name Dose Route Start Last Admin Trade Name Michelle PRN Reason Stop Dose Admin Chlordiazepoxide 25 mg 06/06/18 18:00 06/07/18 10:07 Librium PO 06/10/18 17:59 25 mg Q6 STEVEN Administration Taper Folic Acid 1 mg 06/06/18 18:30 06/07/18 10:08 Folic Acid PO 1 mg DAILY STEVEN Administration Gabapentin 300 mg 06/06/18 18:15 06/07/18 10:07 Neurontin PO 300 mg TID STEVEN Administration Influenza Virus Vaccine 60 mcg 06/09/18 10:00 Flucelvax Quad 3345-3932 Syr IM 06/09/18 10:01 .ONCE ONE Multivitamins 1 tab 06/06/18 18:30 06/07/18 10:07 Hexavitamin PO 1 tab DAILY STEVEN Administration Nicotine 1 patch 06/07/18 10:00 06/07/18 10:37 Nicoderm Cq TD 1 patch DAILY STEVEN Administration Pneumococcal Polyvalent Vaccine 0.5 ml 06/09/18 10:00 Pneumovax 23 Vaccine IM 06/09/18 10:01 .ONCE ONE Sertraline HCl 50 mg 06/07/18 10:00 06/07/18 10:07 Zoloft PO 50 mg DAILY STEVEN Administration Thiamine HCl 100 mg 06/06/18 18:20 06/07/18 10:07 Vitamin B1 Tab PO 100 mg DAILY STEVEN Administration Trazodone HCl 100 mg 06/06/18 22:00 06/06/18 22:13 Desyrel PO Not Given HS STEVEN Vitamin A 0.5 ea 06/07/18 10:36 Vitamin A & D Oint Ud Foilpak TOP Q4 PRN Dry skin Past Psychiatric History - Past Psychiatric History Previous Treatment History: Inpatient Pertinent Medical Hx (Current Medical&Sleep Prob, Allergies): Allergies Allergy/AdvReac Type Severity Reaction Status Date / Time No Known Allergies Allergy Verified 06/06/18 00:37 FLUoxetine [Prozac] 20 mg PO DAILY #14 cap 05/31/18 Folic Acid 1 mg PO DAILY #14 tab 05/31/18 Gabapentin [Neurontin] 300 mg PO TID #45 cap 05/31/18 Multivitamin Therapeutic Tab [Thera Tab] 1 tab PO 0800 #14 tab 05/31/18 Thiamine [Vitamin B1 Tab] 100 mg PO DAILY #14 tab 05/31/18 chlordiazePOXIDE [Chlordiazepoxide HCl] 10 mg PO BID #4 cap 05/31/18 traZODone [Desyrel] 50 mg PO HS #14 tab 05/31/18 Review of Systems - Review of Systems All systems: reviewed and no additional remarkable complaints except - Psychiatric Psychiatric: Anxiety, Irritability, Suicidal Ideation. absent: Auditory Hallucinations Mental Status Examination - Personal Presentation Personal Presentation: Looks stated age - Affect Affect: Constricted, Depressed - Motor Activity Motor Activity: Calm - Reliability in Providing Information Reliability in Providing Information: Fair - Speech Speech: Organized - Mood Mood: Depressed, Anxious - Formal Thought Process Formal Thought Process: No Impairment - Obsessions/Compulsions Obsessions: No Compulsions: No - Cognitive Functions Orientation: Person, Place, Situation, Time Sensorium: Alert Attention/Concentration: Attentive Abstract Thinking: [place] Estimate of Intelligence: Below average Judgement: Imparied, as evidence by: Poor judgement, Imparied, as evidence by: Lack of insight into illness - Risk Risk: Suicidal, Withdrawal, Diminished functioning - Limitations Limitations: Living alone DSM 5 DX - DSM 5 DSM 5 Diagnosis: Major depressive disorder recurrent severe without psychotic features Alcohol use disorder severe Alcohol withdrawal Opioid use disorder severe - Recommended/Plan of Treatment Treatment Recommendations and Plan of Treatment: Major depressive disorder recurrent severe without psychotic features Alcohol use disorder severe Alcohol withdrawal Opioid use disorder severe -CBT -Psychoeducation -Supportive therapy and group therapy -Zoloft for depression -Librium for alcohol withdrawal -Withdrawal medications including multivitamin/thiamine -Trazodone for insomnia -Hydroxyzine for anxiety -Neurontin for augmentation
[2018-06-07] MEDS ORDERED: Vitamins A & D Oint UD Foilpak TOP SCH (12:00)
[2018-06-08] MEDS: Multiple Vitamins Tab PO SCH (09:03)
--- NOTE | 2018-06-08 13:54 | PCM.PYCHPN ---
Psychiatric Progress Note - Psychiatric Progress Note Patient seen today, length of contact: 15 min Patient Chief Complaint: I started drinking. Medication Change: Yes Medical Record Reviewed: Yes Mental Status Examination - Cognitive Function Orientation: Person, Place, Situation, Time Memory: Intact Attention: WNL Concentration: Poor Association: WNL Fund of Knowledge: Poor - Mood Mood: Depressed, Anxious - Affect Affect: Constricted, Depressed - Speech Speech: Soft - Formal Thought Process Formal Thought Process: No Impairment - Suicidal Ideation Suicidal Ideation: No - Homicidal Ideation Homicidal Ideation: No Goal/Treatment Plan - Goal/Treatment Plan Need for Continued Stay: Remain at risks for inpatient hospitalization Progress Toward Problem(s) and Goals/Treatment Plan: Major depressive disorder recurrent severe without psychotic features Alcohol use disorder severe Alcohol withdrawal Opioid use disorder severe -CBT -Psychoeducation -Supportive therapy and group therapy -Zoloft for depression -Librium for alcohol withdrawal -Withdrawal medications including multivitamin/thiamine -Trazodone for insomnia -Hydroxyzine for anxiety -Neurontin for augmentation
[2018-06-08 15:44] VITALS: BP 120/81; PULSE 72
[2018-06-08] MEDS: Vitamins A & D Oint UD Foilpak TOP PRN (17:34)
[2018-06-09] MEDS: Vitamins A & D Oint UD Foilpak TOP PRN (09:05)
[2018-06-09] MEDS: Multiple Vitamins Tab PO SCH (09:06)
[2018-06-09] MEDS ORDERED: Influenza Vaccine 60 mcg/0.5 mL SYR (4YR UP) IM ONE (10:00)
[2018-06-09] MEDS ORDERED: Pneumococcal 23-Valent Vaccine IM ONE (10:00)
--- NOTE | 2018-06-09 10:24 | PCM.PYCHDC ---
Mental Status Examination - Mental Status Examination Orientation: Person, Place, Situation, Time Memory: Intact Mood: Neutral Affect: Constricted Speech: Soft Attention: WNL Concentration: WNL Association: WNL Fund of Knowledge: WNL Formal Thought Process: No Impairment Description of patient's judgement and insight: good, fair Psychotic Thoughts and Behaviors: denies any AVH Suicidal Ideation: No Current Homicidal Ideation?: No Discharge Summary - Discharge Note Consultations:: List each consultation separately and include: 1. Reason for request. 2. Findings. 3. Follow-up Summary of Hospital Course include:: 1. Description of specific treatment plan utilized for patients during their course of treatmen. 2. Summarize the time- course for resolution of acute symptoms and/or regressed behaviors. 3. Describe issues identified and worked on during hospitalization. 4. Describe medication utilized. 5. Describe medical problems identified and treated. 6. Reassessment of suicide risk - Diagnosis (1) Major depressive disorder, recurrent episode Current Visit: Yes Status: Chronic Priority: Medium (2) Alcohol use disorder Current Visit: No Status: Acute Priority: Medium - Final Diagnosis (DSM 5) Condition upon Discharge: STABLE Disposition: HOME/ ROUTINE Follow-up Treatment Plan: Major depressive disorder recurrent severe without psychotic features Alcohol use disorder severe Alcohol withdrawal Opioid use disorder severe -CBT -Psychoeducation -Supportive therapy and group therapy -Zoloft for depression -Librium for alcohol withdrawal -Withdrawal medications including multivitamin/thiamine -Trazodone for insomnia -Hydroxyzine for anxiety -Neurontin for augmentation Prescriptions/Medication Reconciliation: Gabapentin [Neurontin] 300 mg PO BID #60 cap Sertraline [Zoloft] 100 mg PO DAILY #30 tab traZODone [Desyrel] 100 mg PO HS #30 tab
== END 2018-06-09 11:15 | disposition home or self-care (01) | DRG 751 ==
LOC: C.ER 10:39 → C.5E 15:11 → C.9E 16:12 → C.5E 16:15
PROVIDERS: ADMIT Psychiatry & Neurology Psychiatry; ATTEND Psychiatry & Neurology Psychiatry
PROC: GZ3ZZZZ Medication Management (ICD-10-PCS; principal; 2018-06-06)
PROC: GZHZZZZ Group Psychotherapy (ICD-10-PCS; 2018-06-06)
PROC: GZ56ZZZ Individual Psychotherapy, Supportive (ICD-10-PCS; 2018-06-06)
PROC: HZ89ZZZ Medication Management for Substance Abuse Treatment, Other Replacement Medication (ICD-10-PCS; 2018-06-06)
DX: F33.2 Major depressive disorder, recurrent severe without psychotic features (principal); F10.239 Alcohol dependence with withdrawal, unspecified; F11.20 Opioid dependence, uncomplicated; R45.851 Suicidal ideations; F41.9 Anxiety disorder, unspecified; G47.00 Insomnia, unspecified; F17.210 Nicotine dependence, cigarettes, uncomplicated; J45.909 Unspecified asthma, uncomplicated

== ENCOUNTER 2018-06-19 07:17 | Emergency (ER) | payer MEDICAID, OTHER ==
[2018-06-19 07:45] VITALS: RESP 18; BMI 24.0
--- NOTE | 2018-06-19 08:19 | C.PDOC ---
History Of Present Illness 27 year old female presents to the ED requesting ETOH detox. The patient states her last drink was a few hours prior to arrival. Pt has multiple recent ER visits since April, with 13 in-site ER visits to date. On 06.17.[address] a CT of the face, head, chest, pelvis, and c-spine with no acute findings per reports with admission for elevated lipase and negative findings for CT ABD. Prior records show pending psych eval where she left AMA 06.18.18 from [place]. Denies use of other drugs, SI, HI and any other associated symptoms. Time Seen by Provider: 06/19/18 07:46 Chief Complaint (Nursing): Psychiatric Evaluation History Per: Patient History/Exam Limitations: intoxication Current Symptoms Are (Timing): Still Present Suicide/Self Injury Attempted (Context): None Recent travel outside of the [place]: No Past Medical History Reviewed: Historical Data, Nursing Documentation, Vital Signs Vital Signs: Last Vital Signs Temp 97.3 F L 06/19/18 07:35 Pulse 81 06/19/18 07:35 Resp 18 06/19/18 07:35 BP 124/79 06/19/18 07:35 Pulse Ox 98 06/19/18 07:35 - Medical History PMH: Anxiety, Asthma, Depression Denies: Diabetes, Hepatitis, HIV, HTN, Chronic Kidney Disease, Seizures, Sexually Transmitted Disease - [facility] Procedures DETOXIFICATION SERVICES FOR SUBSTANCE ABUSE TREATMENT (04/13/18) GROUP YOUTH DIRECTOR FOR SUBSTANCE ABUSE TREATMENT, PSYCHOEDUCATION (03/28/18) GROUP PSYCHOTHERAPY (06/06/18) INDIV PSYCHOTHERAPY FOR SUBSTANCE ABUSE TREATMENT, SUPPORT (03/28/18) INDIVIDUAL PSYCHOTHERAPY, SUPPORTIVE (06/06/18) MEDICATION MANAGEMENT (06/06/18) MEDS MGMT FOR SUBSTANCE ABUSE TREATMENT, METHADONE MAINT (04/22/18) MEDS MGMT FOR SUBSTANCE ABUSE TREATMENT, OTH REPL MED (06/06/18) PERIPHERAL NERVE SUTURE (01/10/06) TENDON SHEATH SUTURE (01/10/06) Family History: States: Unknown Family Hx - Social History Hx Alcohol Use: Yes (PINT OF VODKA DAILY OR MORE.LAST DRINK TODAY THIS AM.PINT OF VODKA) Hx Substance Use: Yes (H/O HEROINE,WAS ON METH PROGRAM 5 YRS AGO.) - Immunization History Hx Tetanus Toxoid Vaccination: No Hx Influenza Vaccination: No Hx Pneumococcal Vaccination: No Review Of Systems Except As Marked, All Systems Reviewed And Found Negative. Constitutional: Positive for: Other (ETOH detox. ) Psych: Negative for: Suicidal ideation, Other (homicidal ideations. ) Physical Exam - Physical Exam Appears: Other ( mild intox.) Skin: Warm, Dry, Other ((+) old healing bruises on the face. (-) swelling or deformities.) Head: Atraumatic, Normacephalic Eye(s): bilateral: Normal Inspection Oral Mucosa: Moist Neck: Normal ROM Chest: Symmetrical Cardiovascular: Rhythm Regular, No Murmur Respiratory: Normal Breath Sounds, Other (NARD.) Gastrointestinal/Abdominal: Normal Exam, Soft, No Tenderness Extremity: Bilateral: Atraumatic, Normal Color And Temperature, Normal ROM Neurological/Psych: Oriented x3, Normal Motor, Normal Sensation ED Course And Treatment O2 Sat by Pulse Oximetry: 98 (RA) Pulse Ox Interpretation: Normal Progress - Re-Evaluation Re-evaluation Note: 06/19/18 11:32 AWAKE ALERT IMPROVED INTERACTION. TOLERATING PO WO DIFF. S/P EVAL BY CRISIS, PT REQUESTING DETOX. 06/19/18 12:06 D/W DR PARRISH, AWARE OF OLD RECORDS AND MULT TRAUMA EVAL. RECENT ADMISSION ON [place], PT NEVER REQUIRED CIWA. CLEARED FOR DC CLEAR SPEECH AND THOUGHT, STEADY GAIT. NO S/S ACUTE INTOX MED CLEAR FOR DC - Data Reviewed Data Reviewed: Lab, Old records Medical Decision Making Medical Decision Making: Initial plan: -Drug screen -Glucose -HCG Urine Progress/Update: Case discussed with Crisis. Pt stable for discharge home. Disposition Counseled Patient/Family Regarding: Diagnosis, Need For Followup - Disposition [facility] [Outside] Disposition: HOME/ ROUTINE Disposition Time: 12:06 Condition: IMPROVED Instructions: Alcohol Abuse and Alcoholism (DC) Forms: [facility] (French) - Clinical Impression Clinical Impression: Alcohol use disorder - Scribe Statement The provider has reviewed the documentation as recorded by the Scribe (Yesi Andersen) Provider Attestation: All medical record entries made by the Scribe were at my direction and personally dictated by me. I have reviewed the chart and agree that the record accurately reflects my personal performance of the history, physical exam, medical decision making, and the department course for this patient. I have also personally directed, reviewed, and agree with the discharge instructions and disposition.
[2018-06-19 08:44] LABS: BARBITURATES, UR NEGATIVE (NEGATIVE); OPIATES, UR NEGATIVE (NEGATIVE); PHENCYCLIDINE, UR NEGATIVE (NEGATIVE)
[2018-06-19 08:48] LABS: BENZODIAZEPINES, UR POSITIVE (NEGATIVE)
[2018-06-19 10:22] VITALS: BP 98/56; PULSE 95; TEMP 98.1
[2018-06-19 11:33] VITALS: O2SAT 98
== END 2018-06-19 12:43 | disposition home or self-care (01) ==
LOC: C.ER 07:17
DX: F10.10 Alcohol abuse, uncomplicated (principal)
CPT/HCPCS: 82948; 84703; 99285; G0480

== ENCOUNTER 2018-06-20 12:58 | Emergency (ER) | payer SELFPAY | END 2018-06-20 13:57 | disposition home or self-care (01) | LOC: C.ER 12:58 ==

== ENCOUNTER 2018-06-22 20:49 | Emergency (ER) | payer OTHER, MEDICAID | END 2018-06-23 05:43 | disposition home or self-care (01) | LOC: C.ER 06-23 05:43 ==